=== PATIENT | male | born 1955 | race African-American/Black ===

== ENCOUNTER → 2017-07-12 | Outpatient (CLI) | payer OTHER | END | disposition home or self-care (01) | LOC: KCIC 10:28 | DX: R05 Cough (principal); M41.84 Other forms of scoliosis, thoracic region; Z87.891 Personal history of nicotine dependence | CPT/HCPCS: 71046 ==

== ENCOUNTER → 2017-07-30 | Outpatient (CLI) | payer OTHER | END | disposition home or self-care (01) | LOC: KCIC CT 09:34 | DX: J43.9 Emphysema, unspecified (principal); I25.10 Atherosclerotic heart disease of native coronary artery without angina pectoris; E04.1 Nontoxic single thyroid nodule; Z87.891 Personal history of nicotine dependence | CPT/HCPCS: 71250 ==

== ENCOUNTER → 2017-12-13 | Outpatient (CLI) | payer BC, OTHER, MEDICARE | END | disposition home or self-care (01) | LOC: KCIC US 09:04 | DX: E04.2 Nontoxic multinodular goiter (principal); J43.9 Emphysema, unspecified; Z87.891 Personal history of nicotine dependence | CPT/HCPCS: 76536 ==

== ENCOUNTER → 2018-11-08 | Outpatient (CLI) | payer BC ==
--- NOTE | 2018-11-08 14:29 | KCIC ---
Thyroid ultrasound HISTORY: Bilateral thyroid nodules, follow-up. COMPARISON: December 13, 2017 FINDINGS: Right thyroid measures 5.0 x 1.7 x 1.6 cm. Left lobe measures 5.5 x 1.8 x 1.9 cm. Thyroid isthmus measures 3.8 mm. Solid appearing right thyroid nodule measures 7 x 5 x 4 mm with mixed nature. Appears similar as prior study. This demonstrates internal vascularity. A couple of tiny nodules are again seen inferiorly on the right. Left superior pole thyroid nodule measures 9 x 6 x 7 mm with mixed nature and internal vascularity. Appearance and size are similar to the prior study. Additional tiny scattered nodules are also seen in the left thyroid. IMPRESSION: Bilateral dominant thyroid nodules with internal vascularity, no significant change in size or appearance since prior exam. Electronically signed by: Domenico Stevens MD (11/08/2018 2:26 PM) [facility]
== END | disposition home or self-care (01) ==
LOC: KCIC US 10:40
PROVIDERS: ATTEND Family Medicine
DX: E04.2 Nontoxic multinodular goiter (principal)
CPT/HCPCS: 76536

== ENCOUNTER 2019-06-08 12:55 | Emergency (ER) | payer BC, OTHER ==
[2019-06-08 13:04] VITALS: BP 123/78
[2019-06-08] MEDS ORDERED: IV NORMAL SALINE 1000ML BAG 1,000 ML IV ONE (13:15)
--- NOTE | 2019-06-08 13:25 | PHYS DOC ---
Past Medical History Past Surgical History: No Surgical History Smoking: Less than 1pk/day Adult General Chief Complaint Chief Complaint: DIZZY/LIGHT HEADED HPI HPI A 63-year-old male presents via EMS after a syncopal episode while at restoration. He reports feeling dizzy beforehand and needing to lay his head down.. He denies losing consciousness. He reports having episodes similar to this for the past month about once every 2 weeks. When he feels dizzy he will leg or sit down for 10-15 minutes and it goes away. He denies associated shortness of breath, chest pain, fever. In the emergency department he denies dizziness or any other symptoms. EMS gave him a 325 mg aspirin Review of Systems Review of Systems Constitutional: Denies fever or chills Eyes: Denies redness or eye pain HENT: Denies nasal congestion or sore throat Respiratory: Denies cough or shortness of breath Cardiovascular: Denies chest pain or palpitations GI: Denies abdominal pain, nausea, or vomiting : Denies dysuria or hematuria Musculoskeletal: Denies back pain or joint pain Integument: Denies rash or skin lesions Neurologic: Denies headache, focal weakness or sensory changes Complete systems were reviewed and found to be within normal limits, except as documented in this note. Current Medications Current Medications Current Medications Medications (Trade) Dose Ordered Sig/Darline Start Time Stop Time Status Last Admin Dose Admin Sodium Chloride 1,000 ml @ 1,000 mls/hr 1X ONCE 06/08/19 13:15 06/08/19 14:14 UNV Physical Exam Physical Exam Constitutional: Well developed, well nourished, no acute distress, non-toxic appearance HENT: Normocephalic, atraumatic, oropharynx moist Eyes: PERRL, EOMI, conjunctiva normal, no discharge Neck: Normal range of motion, no tenderness, supple Cardiovascular: Heart rate normal, regular rhythm Lungs & Thorax: Bilateral breath sounds clear to auscultation, no wheezing Abdomen: Soft, no tenderness Skin: Warm, dry, no erythema, no rash Back: No tenderness, no CVA tenderness Extremities: No tenderness, ROM intact, no edema Neurologic: Alert and oriented X 3, normal motor function, normal sensory function, no focal deficits noted Psychologic: Affect normal, judgement normal, mood normal Current Patient Data Vital Signs Vital Signs Date Time Temp Pulse Resp B/P (MAP) Pulse Ox O2 Delivery O2 Flow Rate FiO2 06/08/19 13:04 98.1 64 16 123/78 (93) 96 Room Air 98.1 EKG EKG EKG per EMS at 12:30 shows a normal sinus rhythm and a heart rate of [address] segment elevation in the and wide downward QRS complexes in the precordial leads. Per sgarbossa criteria STEMI is unlikely. EKG in the emergency department at 1308 shows sinus rhythm with a heart rate of 67 bpm. Similar findings of wide QRS complex and ST segment elevation in the precordial leads are shown. Per sgarbossa criteria STEMI is unlikely. Radiology/Procedures Radiology/Procedures [] Course & Med Decision Making Course & Med Decision Making Patient presents after a near syncopal episode at restoration. He reports 3 episodes in the last month of dizziness followed by laying or sitting down and feeling better in 10-15 minutes. Patient denies losing consciousness and says he is aware of everything that is happening is but didn't select responding. Dragon Disclaimer Dragon Disclaimer This electronic medical record was generated, in whole or in part, using a voice recognition dictation system. Departure Departure Impression: Primary Impression: Near syncope Additional Impressions: Left against medical advice Left bundle branch block Disposition: 07 AGAINST MEDICAL ADVICE Condition: GUARDED Referrals: FERMIN MIRANDA MD (PCP) LEANDRA CANTU MD Patient Instructions: Discharge Against Medical Advice, Syncope, [id number] Additional Instructions: You were noted to have an arrhythmia on EKG. It is unclear if this is new or old. Please follow closely with your doctor for re-evaluation. Problem Qualifiers LILLIE BURRELL DO Jun 08, 2019 13:25
[2019-06-08 13:35] LABS: BASO % 1 % (0-3); EOS # 0.1 x10^3/uL (0.0-0.7); EOS % 2 % (0-3); HEMATOCRIT 27.5 % (39.0-53.0); LYMPH # 1.5 x10^3/uL (1.0-4.8); LYMPH % 28 % (24-48); MEAN CORPUSCULAR HEMOGLOBIN 27 pg (25-35); MEAN CORPUSCULAR HGB CONC 33 g/dL (31-37); MEAN CORPUSCULAR VOLUME 84 fL (79-100); MONO # 0.3 x10^3/uL (0.0-1.1); MONO % 6 % (0-9); NEUT # 3.3 x10^3/uL (1.8-7.7); NEUT % 63 % (31-73); PLATELET COUNT 434 x10^3/uL (140-400); RED BLOOD COUNT 3.28 x10^6/uL (4.30-5.70); RED CELL DISTRIBUTION WIDTH 16.7 % (11.5-14.5); WHITE BLOOD COUNT 5.3 x10^3/uL (4.0-11.0)
[2019-06-08 13:44] LABS: CALCIUM 8.5 mg/dL (8.5-10.1); CREATININE 1.2 mg/dL (0.7-1.3); GFR 73.5; POTASSIUM 3.4 mmol/L (3.5-5.1); PROTHROMBIN TIME PATIENT 14.3 SEC (11.7-14.0)
[2019-06-08 13:50] LABS: ALBUMIN 3.3 g/dL (3.4-5.0); TOTAL BILIRUBIN 0.2 mg/dL (0.2-1.0); TOTAL PROTEIN 6.7 g/dL (6.4-8.2)
--- NOTE | 2019-06-09 08:20 | EKG ---
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
== END 2019-06-08 13:55 | disposition left against medical advice (07) ==
LOC: ER 12:55
DX: R55 Syncope and collapse (principal); I44.7 Left bundle-branch block, unspecified; F17.200 Nicotine dependence, unspecified, uncomplicated
CPT/HCPCS: 36415; 80053; 82553; 83735; 84484; 85025; 85610; 85730; 93005; 99285-25

== ENCOUNTER 2019-06-28 20:09 | Inpatient (IN) | payer OTHER ==
[~2019-06-28] VITALS: Ht 175.3 cm; Wt 65.7 kg
[2019-06-28 20:45] LABS: BASE EXCESS ABG -12 mmol/L (-3-3); FIO2 ABG 100; HCO3 ABG 17 mmol/L (21-28); PCO2 ABG 57 mmHg (35-46); PO2 ABG 54 mmHg (65-108); SAT O2 ABG 73 % (92-99)
[2019-06-28 20:52] LABS: BASO # 0.1 x10^3/uL (0.0-0.2); BASO % 1 % (0-3); EOS # 0.2 x10^3/uL (0.0-0.7); EOS % 2 % (0-3); HEMATOCRIT 27.3 % (39.0-53.0); HEMOGLOBIN 8.3 g/dL (13.0-17.5); LYMPH % 36 % (24-48); MEAN CORPUSCULAR HEMOGLOBIN 26 pg (25-35); MEAN CORPUSCULAR HGB CONC 30 g/dL (31-37); MEAN CORPUSCULAR VOLUME 85 fL (79-100); MONO # 0.6 x10^3/uL (0.0-1.1); MONO % 7 % (0-9); NEUT # 4.7 x10^3/uL (1.8-7.7); NEUT % 55 % (31-73); PLATELET COUNT 392 x10^3/uL (140-400); RED BLOOD COUNT 3.21 x10^6/uL (4.30-5.70); RED CELL DISTRIBUTION WIDTH 18.2 % (11.5-14.5); WHITE BLOOD COUNT 8.5 x10^3/uL (4.0-11.0)
[2019-06-28 20:57] LABS: PROTHROMBIN TIME PATIENT 14.7 SEC (11.7-14.0)
[2019-06-28 20:59] LABS: CALCIUM 8.3 mg/dL (8.5-10.1); CREATININE 1.2 mg/dL (0.7-1.3); GFR 73.5; POTASSIUM 3.4 mmol/L (3.5-5.1)
[2019-06-28] MEDS ORDERED: VANCOMYCIN 1GM IVPB FOR OMNI 250 ML IV ONE (21:00)
[2019-06-28] MEDS ORDERED: PIPERACILLIN/TAZOBACTAM 3.375 GM in IV NORMAL SALINE 50ML 50 ML IV ONE (21:00)
[2019-06-28] MEDS ORDERED: IV NORMAL SALINE 1000ML BAG 1,000 ML IV ONE (21:00)
[2019-06-28] MEDS ORDERED: IPRATRPIUM/ALBUTEROL 0.5/2.5MG 3 ML NEBU. NEB ONE (21:00)
[2019-06-28] MEDS ORDERED: MIDAZOLAM HCL 50 MG in IV NORMAL SALINE 50ML 50 ML IV PRN (21:00)
[2019-06-28] MEDS ORDERED: methylPREDNISolone SOD SUCC PF 125 MG/2 ML VIAL. IV ONE (21:00)
[2019-06-28 21:05] LABS: ALBUMIN 3.2 g/dL (3.4-5.0); ALBUMIN/GLOBULIN RATIO 1.1 (1.0-1.7); D-DIMER 1.05 ug/mlFEU (0.00-0.50); MAGNESIUM 2.2 mg/dL (1.8-2.4); TOTAL BILIRUBIN 0.3 mg/dL (0.2-1.0); TOTAL PROTEIN 6.2 g/dL (6.4-8.2)
[2019-06-28] MEDS ORDERED: VANCOMYCIN 2 GM in IV NORMAL SALINE 500ML BAG 500 ML IV ONE (21:15)
--- NOTE | 2019-06-28 21:15 | RAD ---
EXAM: CHEST ONE VIEW. HISTORY: Shortness of breath. COMPARISON: 07/30/2017. FINDINGS: A frontal view of the chest is obtained. Bilateral perihilar and basilar predominant interstitial opacities are consistent with vdiy-km-bjinoerh pulmonary edema. Hyperinflation is consistent with chronic obstructive pulmonary disease. There is no pneumothorax or clear pleural effusion. The heart is mildly enlarged. IMPRESSION: 1. Wivn-jl-iulxftwp pulmonary edema. Mild cardiomegaly. 2. Correlate for chronic obstructive pulmonary disease. Electronically signed by: Diann Hua MD (06/28/2019 9:12 PM) [id number]
--- NOTE | 2019-06-28 21:22 | PHYS DOC ---
Past Medical History Past Medical History: Unknown Additional Past Medical Histor: PER MEDICS DENIES ALL PMH Past Surgical History: No Surgical History Alcohol Use: None Social History Narrative: UNKNOWN Adult General Chief Complaint Chief Complaint: SHORTNESS OF BREATH HPI HPI Patient is a 63 year old smoker male with history of heart problems who presents EMS with complaint of shortness of breath. Patient complaining of sudden onset of shortness of breath that started couple of hours prior to arrival to ER without chest pain, fever and chills, new change of chronic cough who has had for several months, nausea and vomiting. Patient is reported that patient had O2 sats of 96% room air and brought without any oxygen to emergency room. Patient trying to lay on the ground and states he feels better like that. Patient had O2 sats of 84% at room air at arrival to ER. Review of Systems Review of Systems Constitutional: Denies fever or chills [] Eyes: Denies change in visual acuity, redness, or eye pain [] HENT: Denies nasal congestion or sore throat [] Respiratory: Reports cough and shortness of breath Cardiovascular: No additional information not addressed in HPI [] GI: Denies abdominal pain, nausea, vomiting, bloody stools or diarrhea [] : Denies dysuria or hematuria [] Musculoskeletal: Denies back pain or joint pain [] Integument: Denies rash or skin lesions [] Neurologic: Denies headache, focal weakness or sensory changes [] Endocrine: Denies polyuria or polydipsia [] All other systems were reviewed and found to be within normal limits, except as documented in this note. Allergies Allergies Allergies Coded Allergies Type Severity Reaction Last Updated Verified No Known Drug Allergies 06/28/19 No Physical Exam Physical Exam Constitutional: Moderate distress, non-toxic appearance, diaphoretic. [] HENT: Normocephalic, atraumatic, bilateral external ears normal, oropharynx moist, no oral exudates, nose normal. [] Eyes: PERRLA, EOMI, conjunctiva normal, no discharge. [] Neck: Normal range of motion, no tenderness, supple, no stridor, JVD. [] Cardiovascular: Tachycardia Lungs & Thorax: Moderate respiratory distress with tachypnea and intercostal retraction and rhonchi and rales Abdomen: Bowel sounds normal, soft, no tenderness, no masses, no pulsatile masses. [] Skin: Warm, dry, no erythema, no rash. [] Back: No tenderness, no CVA tenderness. [] Extremities: No tenderness, no cyanosis, no clubbing, ROM intact, no edema. [] Neurologic: Alert and oriented X 3, normal motor function, normal sensory function, no focal deficits noted. [] Psychologic: Affect anxious. Current Patient Data Vital Signs Vital Signs Date Time Temp Pulse Resp B/P (MAP) Pulse Ox O2 Delivery O2 Flow Rate FiO2 06/28/19 20:34 129 178/114 (135) 100 06/28/19 20:09 98.5 36 Room Air 98.5 Lab Values Laboratory Tests Test 06/28/19 20:20 06/28/19 20:36 06/28/19 20:40 White Blood Count 8.5 x10^3/uL (4.0-11.0) Red Blood Count 3.21 x10^6/uL (4.30-5.70) L Hemoglobin 8.3 g/dL (13.0-17.5) L Hematocrit 27.3 % (39.0-53.0) L Mean Corpuscular Volume 85 fL (79-100) Mean Corpuscular Hemoglobin 26 pg (25-35) Mean Corpuscular Hemoglobin Concent 30 g/dL (31-37) L Red Cell Distribution Width 18.2 % (11.5-14.5) H Platelet Count 392 x10^3/uL (140-400) Neutrophils (%) (Auto) 55 % (31-73) Lymphocytes (%) (Auto) 36 % (24-48) Monocytes (%) (Auto) 7 % (0-9) Eosinophils (%) (Auto) 2 % (0-3) Basophils (%) (Auto) 1 % (0-3) Neutrophils # (Auto) 4.7 x10^3/uL (1.8-7.7) Lymphocytes # (Auto) 3.0 x10^3/uL (1.0-4.8) Monocytes # (Auto) 0.6 x10^3/uL (0.0-1.1) Eosinophils # (Auto) 0.2 x10^3/uL (0.0-0.7) Basophils # (Auto) 0.1 x10^3/uL (0.0-0.2) Prothrombin Time 14.7 SEC (11.7-14.0) H Prothrombin Time INR 1.2 (0.8-1.1) H Activated Partial Thromboplast Time 26 SEC (24-38) D-Dimer (Ingrid) 1.05 ug/mlFEU (0.00-0.50) H Sodium Level 143 mmol/L (136-145) Potassium Level 3.4 mmol/L (3.5-5.1) L Chloride Level 104 mmol/L (98-107) Carbon Dioxide Level 19 mmol/L (21-32) L Anion Gap 20 (6-14) H Blood Urea Nitrogen 11 mg/dL (8-26) Creatinine 1.2 mg/dL (0.7-1.3) Estimated GFR (Cockcroft-Gault) 73.5 BUN/Creatinine Ratio 9 (6-20) Glucose Level 276 mg/dL (70-99) H Lactic Acid Level 8.1 mmol/L (0.4-2.0) *H Calcium Level 8.3 mg/dL (8.5-10.1) L Magnesium Level 2.2 mg/dL (1.8-2.4) Total Bilirubin 0.3 mg/dL (0.2-1.0) Aspartate Amino Transferase (AST) 36 U/L (15-37) Alanine Aminotransferase (ALT) 30 U/L (16-63) Alkaline Phosphatase 136 U/L (46-116) H Creatine Kinase 232 U/L (39-308) Troponin I Quantitative 0.051 ng/mL (0.000-0.055) WV-Xee-K-Type Natriuretic Peptide 2585 pg/mL (0-124) H Total Protein 6.2 g/dL (6.4-8.2) L Albumin 3.2 g/dL (3.4-5.0) L Albumin/Globulin Ratio 1.1 (1.0-1.7) Lipase 105 U/L (73-393) Thyroid Stimulating Hormone (TSH) 1.343 uIU/mL (0.358-3.74) POC Troponin I 0.03 ng/ml (<0.08) O2 Saturation 73 % (92-99) L Arterial Blood pH 7.10 (7.35-7.45) *L Arterial Blood pCO2 at Patient Temp 57 mmHg (35-46) H Arterial Blood pO2 at Patient Temp 54 mmHg (65-108) L Arterial Blood HCO3 17 mmol/L (21-28) L Arterial Blood Base Excess -12 mmol/L (-3-3) L FiO2 100 Laboratory Tests 06/28/19 20:20 Laboratory Tests 06/28/19 20:20 EKG EKG EKG interpreted by me. EKG at 2026 showed sinus tachycardia at rate of 136, left atrial abnormality, left bundle branch block (old), no acute ST and T-wave elevation. Radiology/Procedures Radiology/Procedures [facility] [address] [place] [address] IMAGING REPORT Signed PATIENT: LAYO BUTLER BACCOUNT: [id number] : 1955 LOCATION: [address] [place] [address] AGE: 63 SEX: M EXAM STATUS: ADM IN ORD. PHYSICIAN: EVELYN FLEMING MD REASON: shortness of breath er#1 PROCEDURE: PORTABLE CHEST 1V EXAM: CHEST ONE VIEW. HISTORY: Shortness of breath. COMPARISON: 07/30/2017. FINDINGS: A frontal view of the chest is obtained. Bilateral perihilar and basilar predominant interstitial opacities are consistent with sqrz-tb-nxydbqha pulmonary edema. Hyperinflation is consistent with chronic obstructive pulmonary disease. There is no pneumothorax or clear pleural effusion. The heart is mildly enlarged. IMPRESSION: 1. Zgnr-of-geivhopa pulmonary edema. Mild cardiomegaly. 2. Correlate for chronic obstructive pulmonary disease. Electronically signed by: Diann Hua MD (06/28/2019 9:12 PM) [id number] DICTATED and SIGNED BY: BRITTNEE HUA MD DATE: 06/28/192111 Course & Med Decision Making Course & Med Decision Making Pertinent Labs and Imaging studies reviewed. (See chart for details) Evaluation of patient in ER showed 64-year-old male patient brought in by EMS because of sudden in onset of shortness of breath. Patient had O2 sats of 84 percent while brought by EMS with diaphoresis and moderate respiratory distress and tachypnea and tachycardia. Patient was started on nonrebreather. An ABG was obtained with pH of 7.1 decided to intubate the patient but patient condition improved significantly with decrease of heart rate and respiratory rate. Therefore patient was started on BiPAP and tolerated BiPAP well. Treatment for sepsis was a started with IV fluid and antibiotic but chest x-ray showed pulmonary edema and IV fluid. Mouth and Lasix was ordered because patient did not have hypotension. Lactic acid reported more than 8 that was most likely related to hypoxia and respiratory distress and patient was not treated with bolus of IV fluids because of lack of hypotension and source of infection and leukocytosis and fever. Patient was admitted to ICU with significant improvement of his condition. Patient requiring admission for further evaluation and treatment. Discussed with Dr. Bledsoe who is in agreement with admission. Discussed findings and plan with patient and family, who acknowledge understanding and agreement. Dragon Disclaimer Dragon Disclaimer This electronic medical record was generated, in whole or in part, using a voice recognition dictation system. Departure Departure Impression: Primary Impression: Acute respiratory distress Additional Impressions: Pulmonary edema Anemia Acute respiratory acidosis Tobacco abuse Disposition: ADMITTED INPATIENT (at 2120) Admitting Physician: URIEL (Dr. Bledsoe accepted admission at 2119) Condition: GUARDED Referrals: FERMIN MIRANDA MD (PCP) Critical Care Time Critical care time was 80 minutes exclusive of procedures. Date and Time of Reassessment Date: Jun 28, 2019 Time: 21:30 Fluid Challenge Is the fluid challenge complet: No (no hypotension or leukocytosis or fever, pulmonary edema) IBW Target Volume Used: No BMI > 30: No Vital Signs Vital Signs: Vital Signs Date Time Temp Pulse Resp B/P (MAP) Pulse Ox O2 Delivery O2 Flow Rate FiO2 06/28/19 20:34 129 178/114 (135) 100 06/28/19 20:09 98.5 36 Room Air 98.5 Temperature Source: Oral Respirations Respiratory Pattern: Tachypnea Cardiovascular Pulse Rhythm: Regular Heart: Nml S1, S2, no murmurs Capillary Refil Capillary Refill: Rt Hand < 3 seconds Peripheral Pulse Pulse Location: Radial Pulse Strength: Normal (2+) Pulse Assessment Method: NIBP Problem Qualifiers Additional Impressions: Pulmonary edema Chronicity: acute Qualified Codes: J81.0 - Acute pulmonary edema Anemia Anemia type: unspecified type Qualified Codes: D64.9 - Anemia, unspecified EVELYN FLEMING MD Jun 28, 2019 21:22
[2019-06-28 21:33] LABS: INFLUENZA A PATIENT NEGATIVE (NEGATIVE); INFLUENZA B PATIENT NEGATIVE (NEGATIVE)
[2019-06-28] MEDS ORDERED: FUROSEMIDE 40 MG/4 ML VIAL. IVP ONE (22:00)
[2019-06-28 22:30] VITALS: BP 148/108
--- NOTE | 2019-06-28 22:30 | NUR ---
pt admitted to room 105 from ED at this time, able to move over to ICU bed without difficulty. pt placed back on bipap at 50%, expresses desire to leave it off but educated on need to keep in on for the foreseeable future; pt voices understanding. VSS on bipap, pt alert and oriented x4 and able to answer admission questions without difficulty. will pass on in report, will continue to closely monitor.
[2019-06-28 22:46] LABS: BARBITURATES NEG (NEG); BENZODIAZEPINES NEG (NEG); CANNABINOIDS NEG (NEG); COCAINE NEG (NEG); METHADONE NEG (NEG); OPIATES NEG (NEG); PHENCYCLIDINE NEG (NEG)
[2019-06-28 22:47] LABS: AMPHETAMINE/METHAMPHETAMINE NEG (NEG)
[2019-06-28 22:52] LABS: BILIRUBIN,URINE NEGATIVE (NEG); CLARITY,URINE CLEAR; COLOR,URINE YELLOW; NITRITE,URINE NEGATIVE (NEG); PH,URINE 5.5; PROTEIN,URINE NEGATIVE (NEG-TRACE); UROBILINOGEN,URINE 0.2 mg/dL (0.2 mg/dL)
[2019-06-28 22:53] LABS: BACTERIA,URINE 0 /HPF (0-FEW); RBC,URINE 0 /HPF (0-2); WBC,URINE OCC /HPF (0-4)
--- NOTE | 2019-06-28 23:45 | NUR ---
pt requesting this nurse contact his earl Almazan via phone and update her on his current condition. attempted to reach her but no answer; will attempt to contact her again in the morning. pt updated and voices understanding. will continue to closely monitor.
[2019-06-29] VITALS (16 sets, daily range): BP systolic 102–154; BP diastolic 62–106
[2019-06-29] MEDS ORDERED: ETOMIDATE 20 MG/10 ML VIAL. IV ONE (00:26)
[2019-06-29] MEDS ORDERED: SUCCINYLCHOLINE 200 MG/10 ML VIAL. ONE (00:27)
[2019-06-29] MEDS ORDERED: FLUT16SP AC (07:51)
[2019-06-29] MEDS ORDERED: CITA40TA5 PO (07:51)
[2019-06-29 08:29] LABS: CALCIUM 8.2 mg/dL (8.5-10.1); GFR 90.5; POTASSIUM 3.7 mmol/L (3.5-5.1)
[2019-06-29 08:50] LABS: BASO % 0 % (0-3); EOS % 0 % (0-3); HEMATOCRIT 25.6 % (39.0-53.0); LYMPH # 0.3 x10^3/uL (1.0-4.8); LYMPH % 4 % (24-48); MEAN CORPUSCULAR HEMOGLOBIN 26 pg (25-35); MEAN CORPUSCULAR HGB CONC 31 g/dL (31-37); MEAN CORPUSCULAR VOLUME 84 fL (79-100); MONO # 0.1 x10^3/uL (0.0-1.1); MONO % 2 % (0-9); NEUT % 93 % (31-73); PLATELET COUNT 330 x10^3/uL (140-400); RED BLOOD COUNT 3.06 x10^6/uL (4.30-5.70); RED CELL DISTRIBUTION WIDTH 17.5 % (11.5-14.5); WHITE BLOOD COUNT 6.4 x10^3/uL (4.0-11.0)
[2019-06-29] MEDS ORDERED: FUROSEMIDE 20 MG/2 ML VIAL. IVP ONE (09:15)
[2019-06-29] MEDS ORDERED: LISINOPRIL 5 MG TABLET. PO ONE (09:15)
--- NOTE | 2019-06-29 09:23 | PDOC ---
PULMONARY PROGRESS NOTES Vitals Vital Signs Date Time Temp Pulse Resp B/P (MAP) Pulse Ox O2 Delivery O2 Flow Rate FiO2 06/29/19 08:47 98.0 105 18 134/86 (102) 100 BiPAP/CPAP 4.0 98.0 Labs Laboratory Tests Test 06/28/19 20:20 06/28/19 20:36 06/28/19 20:40 06/28/19 21:00 White Blood Count 8.5 x10^3/uL (4.0-11.0) Red Blood Count 3.21 x10^6/uL (4.30-5.70) Hemoglobin 8.3 g/dL (13.0-17.5) Hematocrit 27.3 % (39.0-53.0) Mean Corpuscular Volume 85 fL (79-100) Mean Corpuscular Hemoglobin 26 pg (25-35) Mean Corpuscular Hemoglobin Concent 30 g/dL (31-37) Red Cell Distribution Width 18.2 % (11.5-14.5) Platelet Count 392 x10^3/uL (140-400) Neutrophils (%) (Auto) 55 % (31-73) Lymphocytes (%) (Auto) 36 % (24-48) Monocytes (%) (Auto) 7 % (0-9) Eosinophils (%) (Auto) 2 % (0-3) Basophils (%) (Auto) 1 % (0-3) Neutrophils # (Auto) 4.7 x10^3/uL (1.8-7.7) Lymphocytes # (Auto) 3.0 x10^3/uL (1.0-4.8) Monocytes # (Auto) 0.6 x10^3/uL (0.0-1.1) Eosinophils # (Auto) 0.2 x10^3/uL (0.0-0.7) Basophils # (Auto) 0.1 x10^3/uL (0.0-0.2) Prothrombin Time 14.7 SEC (11.7-14.0) Prothromb Time International Ratio 1.2 (0.8-1.1) Activated Partial Thromboplast Time 26 SEC (24-38) D-Dimer (Ingrid) 1.05 ug/mlFEU (0.00-0.50) Sodium Level 143 mmol/L (136-145) Potassium Level 3.4 mmol/L (3.5-5.1) Chloride Level 104 mmol/L (98-107) Carbon Dioxide Level 19 mmol/L (21-32) Anion Gap 20 (6-14) Blood Urea Nitrogen 11 mg/dL (8-26) Creatinine 1.2 mg/dL (0.7-1.3) Estimated GFR (Cockcroft-Gault) 73.5 BUN/Creatinine Ratio 9 (6-20) Glucose Level 276 mg/dL (70-99) Lactic Acid Level 8.1 mmol/L (0.4-2.0) Calcium Level 8.3 mg/dL (8.5-10.1) Magnesium Level 2.2 mg/dL (1.8-2.4) Total Bilirubin 0.3 mg/dL (0.2-1.0) Aspartate Amino Transf (AST/SGOT) 36 U/L (15-37) Alanine Aminotransferase (ALT/SGPT) 30 U/L (16-63) Alkaline Phosphatase 136 U/L (46-116) Creatine Kinase 232 U/L (39-308) Troponin I Quantitative 0.051 ng/mL (0.000-0.055) DF-Oql-U-Type Natriuretic Peptide 2585 pg/mL (0-124) Total Protein 6.2 g/dL (6.4-8.2) Albumin 3.2 g/dL (3.4-5.0) Albumin/Globulin Ratio 1.1 (1.0-1.7) Lipase 105 U/L (73-393) Thyroid Stimulating Hormone (TSH) 1.343 uIU/mL (0.358-3.74) Bedside Troponin I 0.03 ng/ml (<0.08) O2 Saturation 73 % (92-99) Arterial Blood pH 7.10 (7.35-7.45) Arterial Blood pCO2 at Patient Temp 57 mmHg (35-46) Arterial Blood pO2 at Patient Temp 54 mmHg (65-108) Arterial Blood HCO3 17 mmol/L (21-28) Arterial Blood Base Excess -12 mmol/L (-3-3) FiO2 100 Influenza Type A Antigen Negative (NEGATIVE) Influenza Type B Antigen Negative (NEGATIVE) Test 06/28/19 22:30 06/29/19 00:15 06/29/19 02:00 Urine Collection Type Unknown Urine Color Yellow Urine Clarity Clear Urine pH 5.5 Urine Specific [place] 1.020 Urine Protein Negative mg/dL (NEG-TRACE) Urine Glucose (UA) >=1000 mg/dL (NEG) Urine Ketones (Stick) Negative mg/dL (NEG) Urine Blood Negative (NEG) Urine Nitrite Negative (NEG) Urine Bilirubin Negative (NEG) Urine Urobilinogen Dipstick 0.2 mg/dL (0.2 mg/dL) Urine Leukocyte Esterase Negative (NEG) Urine RBC 0 /HPF (0-2) Urine WBC Occ /HPF (0-4) Urine Bacteria 0 /HPF (0-FEW) Urine Opiates Screen Neg (NEG) Urine Methadone Screen Neg (NEG) Urine Barbiturates Neg (NEG) Urine Phencyclidine Screen Neg (NEG) Urine Amphetamine/Methamphetamine Neg (NEG) Urine Benzodiazepines Screen Neg (NEG) Urine Cocaine Screen Neg (NEG) Urine Cannabinoids Screen Neg (NEG) Urine Ethyl Alcohol Neg (NEG) Lactic Acid Level 1.1 mmol/L (0.4-2.0) White Blood Count 6.4 x10^3/uL (4.0-11.0) Red Blood Count 3.06 x10^6/uL (4.30-5.70) Hemoglobin 8.0 g/dL (13.0-17.5) Hematocrit 25.6 % (39.0-53.0) Mean Corpuscular Volume 84 fL (79-100) Mean Corpuscular Hemoglobin 26 pg (25-35) Mean Corpuscular Hemoglobin Concent 31 g/dL (31-37) Red Cell Distribution Width 17.5 % (11.5-14.5) Platelet Count 330 x10^3/uL (140-400) Neutrophils (%) (Auto) 93 % (31-73) Lymphocytes (%) (Auto) 4 % (24-48) Monocytes (%) (Auto) 2 % (0-9) Eosinophils (%) (Auto) 0 % (0-3) Basophils (%) (Auto) 0 % (0-3) Neutrophils # (Auto) 6.0 x10^3/uL (1.8-7.7) Lymphocytes # (Auto) 0.3 x10^3/uL (1.0-4.8) Monocytes # (Auto) 0.1 x10^3/uL (0.0-1.1) Eosinophils # (Auto) 0.0 x10^3/uL (0.0-0.7) Basophils # (Auto) 0.0 x10^3/uL (0.0-0.2) Sodium Level 141 mmol/L (136-145) Potassium Level 3.7 mmol/L (3.5-5.1) Chloride Level 106 mmol/L (98-107) Carbon Dioxide Level 25 mmol/L (21-32) Anion Gap 10 (6-14) Blood Urea Nitrogen 12 mg/dL (8-26) Creatinine 1.0 mg/dL (0.7-1.3) Estimated GFR (Cockcroft-Gault) 90.5 Glucose Level 109 mg/dL (70-99) Calcium Level 8.2 mg/dL (8.5-10.1) Laboratory Tests Test 06/28/19 20:20 06/28/19 20:36 06/28/19 20:40 06/28/19 21:00 White Blood Count 8.5 x10^3/uL (4.0-11.0) Red Blood Count 3.21 x10^6/uL (4.30-5.70) Hemoglobin 8.3 g/dL (13.0-17.5) Hematocrit 27.3 % (39.0-53.0) Mean Corpuscular Volume 85 fL (79-100) Mean Corpuscular Hemoglobin 26 pg (25-35) Mean Corpuscular Hemoglobin Concent 30 g/dL (31-37) Red Cell Distribution Width 18.2 % (11.5-14.5) Platelet Count 392 x10^3/uL (140-400) Neutrophils (%) (Auto) 55 % (31-73) Lymphocytes (%) (Auto) 36 % (24-48) Monocytes (%) (Auto) 7 % (0-9) Eosinophils (%) (Auto) 2 % (0-3) Basophils (%) (Auto) 1 % (0-3) Neutrophils # (Auto) 4.7 x10^3/uL (1.8-7.7) Lymphocytes # (Auto) 3.0 x10^3/uL (1.0-4.8) Monocytes # (Auto) 0.6 x10^3/uL (0.0-1.1) Eosinophils # (Auto) 0.2 x10^3/uL (0.0-0.7) Basophils # (Auto) 0.1 x10^3/uL (0.0-0.2) Prothrombin Time 14.7 SEC (11.7-14.0) Prothromb Time International Ratio 1.2 (0.8-1.1) Activated Partial Thromboplast Time 26 SEC (24-38) D-Dimer (Ingrid) 1.05 ug/mlFEU (0.00-0.50) Sodium Level 143 mmol/L (136-145) Potassium Level 3.4 mmol/L (3.5-5.1) Chloride Level 104 mmol/L (98-107) Carbon Dioxide Level 19 mmol/L (21-32) Anion Gap 20 (6-14) Blood Urea Nitrogen 11 mg/dL (8-26) Creatinine 1.2 mg/dL (0.7-1.3) Estimated GFR (Cockcroft-Gault) 73.5 BUN/Creatinine Ratio 9 (6-20) Glucose Level 276 mg/dL (70-99) Lactic Acid Level 8.1 mmol/L (0.4-2.0) Calcium Level 8.3 mg/dL (8.5-10.1) Magnesium Level 2.2 mg/dL (1.8-2.4) Total Bilirubin 0.3 mg/dL (0.2-1.0) Aspartate Amino Transf (AST/SGOT) 36 U/L (15-37) Alanine Aminotransferase (ALT/SGPT) 30 U/L (16-63) Alkaline Phosphatase 136 U/L (46-116) Creatine Kinase 232 U/L (39-308) Troponin I Quantitative 0.051 ng/mL (0.000-0.055) ZS-Liu-E-Type Natriuretic Peptide 2585 pg/mL (0-124) Total Protein 6.2 g/dL (6.4-8.2) Albumin 3.2 g/dL (3.4-5.0) Albumin/Globulin Ratio 1.1 (1.0-1.7) Lipase 105 U/L (73-393) Thyroid Stimulating Hormone (TSH) 1.343 uIU/mL (0.358-3.74) Bedside Troponin I 0.03 ng/ml (<0.08) O2 Saturation 73 % (92-99) Arterial Blood pH 7.10 (7.35-7.45) Arterial Blood pCO2 at Patient Temp 57 mmHg (35-46) Arterial Blood pO2 at Patient Temp 54 mmHg (65-108) Arterial Blood HCO3 17 mmol/L (21-28) Arterial Blood Base Excess -12 mmol/L (-3-3) FiO2 100 Influenza Type A Antigen Negative (NEGATIVE) Influenza Type B Antigen Negative (NEGATIVE) Test 06/28/19 22:30 06/29/19 00:15 06/29/19 02:00 Urine Collection Type Unknown Urine Color Yellow Urine Clarity Clear Urine pH 5.5 Urine Specific [place] 1.020 Urine Protein Negative mg/dL (NEG-TRACE) Urine Glucose (UA) >=1000 mg/dL (NEG) Urine Ketones (Stick) Negative mg/dL (NEG) Urine Blood Negative (NEG) Urine Nitrite Negative (NEG) Urine Bilirubin Negative (NEG) Urine Urobilinogen Dipstick 0.2 mg/dL (0.2 mg/dL) Urine Leukocyte Esterase Negative (NEG) Urine RBC 0 /HPF (0-2) Urine WBC Occ /HPF (0-4) Urine Bacteria 0 /HPF (0-FEW) Urine Opiates Screen Neg (NEG) Urine Methadone Screen Neg (NEG) Urine Barbiturates Neg (NEG) Urine Phencyclidine Screen Neg (NEG) Urine Amphetamine/Methamphetamine Neg (NEG) Urine Benzodiazepines Screen Neg (NEG) Urine Cocaine Screen Neg (NEG) Urine Cannabinoids Screen Neg (NEG) Urine Ethyl Alcohol Neg (NEG) Lactic Acid Level 1.1 mmol/L (0.4-2.0) White Blood Count 6.4 x10^3/uL (4.0-11.0) Red Blood Count 3.06 x10^6/uL (4.30-5.70) Hemoglobin 8.0 g/dL (13.0-17.5) Hematocrit 25.6 % (39.0-53.0) Mean Corpuscular Volume 84 fL (79-100) Mean Corpuscular Hemoglobin 26 pg (25-35) Mean Corpuscular Hemoglobin Concent 31 g/dL (31-37) Red Cell Distribution Width 17.5 % (11.5-14.5) Platelet Count 330 x10^3/uL (140-400) Neutrophils (%) (Auto) 93 % (31-73) Lymphocytes (%) (Auto) 4 % (24-48) Monocytes (%) (Auto) 2 % (0-9) Eosinophils (%) (Auto) 0 % (0-3) Basophils (%) (Auto) 0 % (0-3) Neutrophils # (Auto) 6.0 x10^3/uL (1.8-7.7) Lymphocytes # (Auto) 0.3 x10^3/uL (1.0-4.8) Monocytes # (Auto) 0.1 x10^3/uL (0.0-1.1) Eosinophils # (Auto) 0.0 x10^3/uL (0.0-0.7) Basophils # (Auto) 0.0 x10^3/uL (0.0-0.2) Sodium Level 141 mmol/L (136-145) Potassium Level 3.7 mmol/L (3.5-5.1) Chloride Level 106 mmol/L (98-107) Carbon Dioxide Level 25 mmol/L (21-32) Anion Gap 10 (6-14) Blood Urea Nitrogen 12 mg/dL (8-26) Creatinine 1.0 mg/dL (0.7-1.3) Estimated GFR (Cockcroft-Gault) 90.5 Glucose Level 109 mg/dL (70-99) Calcium Level 8.2 mg/dL (8.5-10.1) Medications Active Scripts Medications Dose Route/Sig Max Daily Dose Days Date Category Citalopram Hbr (Citalopram Hydrobromide) 40 Mg Tablet 40 Mg PO DAILY 06/29/19 Reported Fluticasone Propionate Nasal [place] (Fluticasone Propionate) 16 Gm [place].susp 16 Gm AC DAILY 06/29/19 Reported Impression . FULL NOTE DICTATED WILL CONTINUE TREATMENT FOR ACUTE CHF D/W DR Mikaela BERG ORDERS THANKS YUDI CARBALLO MD Jun 29, 2019 09:23
--- NOTE | 2019-06-29 09:24 | CONS ---
DATE OF CONSULTATION: 06/29/2019 REASON FOR CONSULTATION: Heart failure. HISTORY OF PRESENT ILLNESS: The patient is a 64-year-old man who presented to the hospital in the setting of excessive dyspnea. He apparently was in his usual state of health, watching the TV and came out of the bathroom when he noted significant dyspnea. His heart rate was noted to be 148 upon arrival to the ER with a blood pressure of 207/88. This slowly improved after diuresis and initiation of BiPAP therapy. He was essentially admitted for treatment of flash pulmonary edema. In speaking to the patient, at baseline he denies any exertional dyspnea, angina, orthopnea, or PND. He apparently saw his PCP a few days ago and was given some medications. He is unclear whether these were pulmonary related or cardiac related. He was due to see Cardiology in the near future. He denies any prior cardiac interventions or any prior lung disease issues. He was seen in the Emergency Department approximately 2 weeks ago and he was there for some dizziness and lightheadedness. This appeared to have occurred after standing in [place] and ultimately he was discharged with followup with Cardiology. PAST MEDICAL HISTORY: Essentially unknown, but the patient denies any significant hypertension, diabetes, or dyslipidemia. SOCIAL HISTORY: The patient smokes cigarettes. Denies any illicit drug use or other excessive alcohol use. ALLERGIES: No known drug allergies. CURRENT CARDIOVASCULAR MEDICATIONS: Lasix 40 mg IV push x 1. He has also been given antibiotics, which will likely be discontinued in the near future. REVIEW OF SYSTEMS: Negative unless otherwise mentioned above in HPI. PHYSICAL EXAMINATION: VITAL SIGNS: Afebrile; heart rate 148 initially, down to 74 currently. Blood pressure was initially 207 systolic, now down to 134. He is on 4 liters nasal cannula, saturating approximately 98%. GENERAL: He is a thin, elderly man, in no acute distress. HEAD AND NECK: Unremarkable. CARDIAC: Regular rate and rhythm without any obvious murmurs. LUNGS: Notable for bilateral rhonchi. ABDOMEN: Soft, nontender, nondistended. EXTREMITIES: No obvious clubbing or cyanosis. There are 2+ radial and 1+ dorsalis pedis pulses. No lower extremity edema. DIAGNOSTIC STUDIES: Hemoglobin is 8.0. Initial blood gas revealed a pH of 7.1. Creatinine is 1.0 with negative cardiac enzymes initially. EKG demonstrates sinus tachycardia with left bundle branch block. Chest x-ray suggestive of diffuse pulmonary edema. IMPRESSION: 1. Acute respiratory failure, likely secondary to flash pulmonary edema. 2. Probable cardiomyopathy given left bundle branch block and cardiomegaly on chest x-ray. 3. Probable uncontrolled hypertension. RECOMMENDATIONS: 1. We will plan for initiation of a low-dose heart failure regimen including carvedilol, lisinopril, and Lasix for now. 2. Obtain echocardiogram and make further determinations regarding plans of care over the next 24 hours. Thank you for this consultation. LEANDRA CANTU MD DR: SABINE/ildefonso JOB#: [id number] / [id number]
[2019-06-29] MEDS ORDERED: ALBUTEROL SULFATE 2.5 MG/3 ML NEBU. NEB PRN (09:30)
--- NOTE | 2019-06-29 09:35 | CONS ---
DATE OF CONSULTATION: 06/29/2019 ATTENDING PHYSICIAN: Remi Bledsoe MD CONSULTING PHYSICIAN: Yudi Mojica MD REASON FOR CONSULTATION: The patient seen in pulmonary consultation at the request of Dr. Bledsoe for acute respiratory failure requiring noninvasive ventilation. Initial arterial blood gas revealed a pH of 7.10, PaCO2 of 57, pO2 of 54, bicarb of 17. HISTORY OF PRESENT ILLNESS: The patient is currently off of BiPAP. He states that he saw Dr. Isaac during the week. She had prescribed some medications. He is not quite sure what he was supposed to take. He denies any prior history of hypertension. He has been told he has had COPD, wears no oxygen at home. No previous coronary artery disease. The patient presented with the above complaints. He was severely short of breath, initially on BiPAP. He is now off of BiPAP. His chest x-ray revealed acute infiltrates compatible with pulmonary edema. The patient states that this week he has not smoked, he is not feeling well. Denies fever, chills, nausea, vomiting, diarrhea. PAST MEDICAL HISTORY: Unclear, but I believe he has hypertension. When he came in, initial blood pressure was markedly elevated. He also smokes and has underlying COPD with an unknown FEV1. REVIEW OF SYSTEMS: CONSTITUTIONAL: No fever or chills. EYES: No change in visual acuity. HENT: No nasal congestion or sore throat. PULMONARY: As indicated above. CARDIOVASCULAR: No chest pain. No pressure. GASTROINTESTINAL: No nausea, vomiting, diarrhea. GENITOURINARY: No dysuria or frequency. MUSCULOSKELETAL: No localized muscle aches or joint pains. SKIN: No new skin rashes. NEUROLOGIC: No headaches, diplopia, or blurred vision. ALLERGIES: No known drug allergies. SOCIAL HISTORY: He is currently not working. Denies any illicit drugs. Does smoke cigarettes. No history of alcoholism. FAMILY HISTORY: Noncontributory in this case. CURRENT MEDICATION: List was reviewed. PHYSICAL EXAMINATION: VITAL SIGNS: Stable. Initial blood pressure was 207/88, his room air saturation in the Emergency Room was 84. HEENT: Eyes, the sclerae were nonicteric. NECK: Jugular venous distention was not elevated. No lymphadenopathy. CHEST: Full expansion. LUNGS: Adequate flow with expiratory wheeze. CARDIOVASCULAR: Regular rate and rhythm with S1, S2. No S3. ABDOMEN: Soft, nontender, nondistended. EXTREMITIES: No clubbing, cyanosis, or edema. LABORATORY DATA: BNP was elevated. White count was normal. Hemoglobin and hematocrit were low, chronically low. Arterial blood gas as indicated above. Toxicology screen was negative. Serology for influenza was negative. IMPRESSION: 1. Acute hypercapnic hypoxemic respiratory failure. 2. Severe metabolic acidosis secondary to increased work of breathing. 3. Acute pulmonary edema. 4. Uncontrolled hypertension/hypertensive crisis. 5. Chronic anemia. 6. Tobacco dependent. 7. Chronic obstructive pulmonary disease, unknown FEV1. PLAN: 1. Recommend continue oxygen supplementation. 2. IV Lasix. 3. No clinical signs of pneumonia, no need for antibiotics. 4. No significant evidence of wheezing. Recommend no steroids at this time. 5. Case was discussed with Dr. Lopez, the patient may require ischemic workup. We will continue adequate blood pressure control. Follow clinical course. The patient was instructed on the importance of discontinuing tobacco use, he will undergo pulmonary function testing as an outpatient, will recommend continue Spiriva as an outpatient, along with p.r.n. albuterol. YUDI MOJICA MD DR: EBENEZER/ildefonso JOB#: [id number] / [id number]
[2019-06-29] MEDS: CARVEDILOL 3.125 MG TABLET. PO SCH ×2 (09:44→17:30)
[2019-06-29] MEDS: ENOXAPARIN 40 MG/0.4 ML SYRINGE. SQ SCH (09:47)
[2019-06-29 10:02] LABS: BASE EXCESS ABG -2 mmol/L (-3-3); HCO3 ABG 21 mmol/L (21-28); PCO2 ABG 27 mmHg (35-46); PO2 ABG 68 mmHg (65-108); SAT O2 ABG 94 % (92-99)
[2019-06-29 10:13] LABS: FIO2 ABG 21
[2019-06-29 11:08] LABS: % BANDS 3 % (0-9); % EOS 1 % (0-5); % LYMPHS 7 % (24-48); % MONOS 2 % (0-10); % SEGS 87 % (35-66); PLT ESTIMATE ADEQUATE (ADEQUATE)
[2019-06-29] MEDS: IPRATRPIUM/ALBUTEROL 0.5/2.5MG 3 ML NEBU. NEB SCH ×3 (11:51→20:18)
--- NOTE | 2019-06-29 15:01 | EKG ---
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
--- NOTE | 2019-06-29 15:14 | PDOC1 ---
History and Physical Date of Admission: Date of Admission DATE: 06/29/19 TIME: 15:09 Chief Complaint: Problems: (1) Respiratory distress (2) Tobacco abuse (3) Anemia (4) Pulmonary edema (5) Acute respiratory acidosis (6) Acute respiratory distress Chief Complain: Shortness of breath History of Present Illness: HPI: This is a pleasant 63-year-old male who presented to the ER with shortness of breath This is been occurring for several days but got really bad last night He tried increasing his home meds but that didn't help Rates his symptoms at 9 out of 10 He has no associated cough for several months and some nausea vomiting He laid on the ground and that seemed to help a little bit Describes as symptoms as very irritating When the EMS arrived he was 84% saturation on room air Evaluation in the ER confirmed acute on chronic systolic and diastolic heart failure with respiratory failure Patient is now in the ICU room 105 where he is being examined Pulmonary and cardiology have been consulted Past Medical/Surgical History: PMH/PSH: Past Medical History: Unknown Additional Past Medical Histor: PER MEDICS DENIES ALL PMH Past Surgical History: No Surgical History Alcohol Use: None Social History Narrative: UNKNOWN Allergies: Allergies: Coded Allergies: No Known Drug Allergies (Unverified , 06/28/19) Family History: Family History: Coronary disease Social History: Social Hisoty: He does not drink smoke or take drugs he is retired Current Medications: Current Medications Current Medications Albuterol/ Ipratropium (Duoneb) 3 ml 1X ONCE NEB Last administered on 06/28/19at 21:00; Start 06/28/19 at 21:00; Stop 06/28/19 at 21:01; Status DC Methylprednisolone Sodium Succinate (SOLU-Medrol 125MG VIAL) 125 mg 1X ONCE IV Last administered on 06/28/19at 20:41; Start 06/28/19 at 21:00; Stop 06/28/19 at 21:01; Status DC Sodium Chloride 1,000 ml @ 1,000 mls/hr 1X ONCE IV ; Start 06/28/19 at 21:00; Stop 06/28/19 at 21:22; Status DC Midazolam HCl 50 mg/Sodium Chloride 50 ml @ 1 mls/hr CONT PRN IV SEE I/O RECORD; Start 06/28/19 at 21:00 Piperacillin Sod/ Tazobactam Sod 3.375 gm/Sodium Chloride 50 ml @ 100 mls/hr 1X ONCE IV Last administered on 06/28/19at 21:48; Start 06/28/19 at 21:00; Stop 06/28/19 at 21:29; Status DC Vancomycin HCl 250 ml @ 250 mls/hr 1X ONCE IV ; Start 06/28/19 at 21:00; Stop 06/28/19 at 21:59; Status UNV Lorazepam (Ativan Inj) 1 mg 1X ONCE IVP ; Start 06/28/19 at 21:00; Stop 06/28/19 at 21:02; Status DC Vancomycin HCl 2 gm/Sodium Chloride 500 ml @ 250 mls/hr 1X ONCE IV Last administered on 06/28/19at 21:47; Start 06/28/19 at 21:15; Stop 06/28/19 at 23:14; Status DC Furosemide (Lasix) 40 mg 1X ONCE IVP Last administered on 06/28/19at 21:46; Start 06/28/19 at 22:00; Stop 06/28/19 at 22:01; Status DC Etomidate (Amidate) 20 mg STK-MED ONCE IV ; Start 06/29/19 at 00:26; Stop 06/29/19 at 00:27; Status DC Succinylcholine Chloride (Anectine) 200 mg STK-MED ONCE .ROUTE ; Start 06/29/19 at 00:27; Stop 06/29/19 at 00:27; Status DC Carvedilol (Coreg) 3.125 mg BIDWMEALS PO Last administered on 06/29/19at 09:44; Start 06/29/19 at 09:30 Lisinopril (Prinivil) 5 mg DAILY PO ; Start 06/30/19 at 09:00 Lisinopril (Prinivil) 5 mg 1X ONCE PO Last administered on 06/29/19at 09:44; Start 06/29/19 at 09:15; Stop 06/29/19 at 09:26; Status DC Furosemide (Lasix) 20 mg 1X ONCE IVP Last administered on 06/29/19at 09:43; Start 06/29/19 at 09:15; Stop 06/29/19 at 09:26; Status DC Albuterol Sulfate (Ventolin Neb Soln) 2.5 mg PRN Q2HR PRN NEB DYSPNEA; Start 06/29/19 at 09:30 Albuterol/ Ipratropium (Duoneb) 3 ml RTQID NEB Last administered on 06/29/19at 11:51; Start 06/29/19 at 12:00 Enoxaparin Sodium (Lovenox 40mg Syringe) 40 mg DAILY SQ Last administered on 06/29/19at 09:47; Start 06/29/19 at 10:00 Active Scripts Active Reported Citalopram Hbr (Citalopram Hydrobromide) 40 Mg Tablet 40 Mg PO DAILY Fluticasone Propionate Nasal Vail (Fluticasone Propionate) 16 Gm Vail.susp 16 Gm AC DAILY ROS: Review of Systems Review of System REVIEW OF SYSTEMS: GENERAL: Complains of weakness SKIN: No bruising, hair changes or rashes. EYES: No blurred, double or loss of vision. NOSE AND THROAT: No history of nosebleeds, hoarseness or sore throat. HEART: Complains of intermittent chest discomfort and palpitations LUNGS: Complains of shortness breath and cough GASTROINTESTINAL: Complains of intermittent nausea vomiting GENITOURINARY: No history of frequency, urgency, hesitancy or nocturia. NEUROLOGIC: Complains of weakness PSYCHIATRIC: Complains of depression ENDOCRINE: No history of heat or cold intolerance, polyuria or polydipsia. EXTREMITIES: Denies joint pain, pain on walking or stiffness. Physical Exam: Vital Signs: Vital Signs Date Time Temp Pulse Resp B/P (MAP) Pulse Ox O2 Delivery O2 Flow Rate FiO2 06/29/19 15:01 98.0 77 16 128/79 (95) 100 Nasal Cannula 1.0 98.0 Physcial Exam: GEN: Awake and alert but very weak HEENT: Normal cephalic, atraumatic, external auditory canals are patent EYES: Extraocular muscles are intact, pupil are equally round and reactive to light and accommodation MUSCULOSKELETAL: Well developed , well nourished, good range of motion ENDOCRINE: No thyromegaly was palpated LYMPHATICS: No cervical chain or axillary nodes were noted HEMATOPOIETIC: No bruising NECK: Supple, no JVD, no thyromegaly was noted LUNGS: Bibasilar crackles HEART: S1 and S2 and a soft S3 ABDOMEN: Soft, nontender. Positive bowel sounds, no organomegaly, normal bowel sounds EXTREMITIES: Without clubbing, cyanosis, or edema. Pedal pulses intact. Negative Homans sign NEUROLOGIC: . Weak PSYCHIATRIC: Depressed SKIN: No ulcerations or rashes, good skin turgor, no jaundice VASCULAR: Good capillary refill, neurovascular bundle appears to be intact Labs: Labs: Laboratory Tests Test 06/28/19 20:20 06/28/19 20:36 06/28/19 20:40 06/28/19 21:00 White Blood Count 8.5 x10^3/uL (4.0-11.0) Red Blood Count 3.21 x10^6/uL (4.30-5.70) Hemoglobin 8.3 g/dL (13.0-17.5) Hematocrit 27.3 % (39.0-53.0) Mean Corpuscular Volume 85 fL (79-100) Mean Corpuscular Hemoglobin 26 pg (25-35) Mean Corpuscular Hemoglobin Concent 30 g/dL (31-37) Red Cell Distribution Width 18.2 % (11.5-14.5) Platelet Count 392 x10^3/uL (140-400) Neutrophils (%) (Auto) 55 % (31-73) Lymphocytes (%) (Auto) 36 % (24-48) Monocytes (%) (Auto) 7 % (0-9) Eosinophils (%) (Auto) 2 % (0-3) Basophils (%) (Auto) 1 % (0-3) Neutrophils # (Auto) 4.7 x10^3/uL (1.8-7.7) Lymphocytes # (Auto) 3.0 x10^3/uL (1.0-4.8) Monocytes # (Auto) 0.6 x10^3/uL (0.0-1.1) Eosinophils # (Auto) 0.2 x10^3/uL (0.0-0.7) Basophils # (Auto) 0.1 x10^3/uL (0.0-0.2) Prothrombin Time 14.7 SEC (11.7-14.0) Prothromb Time International Ratio 1.2 (0.8-1.1) Activated Partial Thromboplast Time 26 SEC (24-38) D-Dimer (Ingrid) 1.05 ug/mlFEU (0.00-0.50) Sodium Level 143 mmol/L (136-145) Potassium Level 3.4 mmol/L (3.5-5.1) Chloride Level 104 mmol/L (98-107) Carbon Dioxide Level 19 mmol/L (21-32) Anion Gap 20 (6-14) Blood Urea Nitrogen 11 mg/dL (8-26) Creatinine 1.2 mg/dL (0.7-1.3) Estimated GFR (Cockcroft-Gault) 73.5 BUN/Creatinine Ratio 9 (6-20) Glucose Level 276 mg/dL (70-99) Lactic Acid Level 8.1 mmol/L (0.4-2.0) Calcium Level 8.3 mg/dL (8.5-10.1) Magnesium Level 2.2 mg/dL (1.8-2.4) Total Bilirubin 0.3 mg/dL (0.2-1.0) Aspartate Amino Transf (AST/SGOT) 36 U/L (15-37) Alanine Aminotransferase (ALT/SGPT) 30 U/L (16-63) Alkaline Phosphatase 136 U/L (46-116) Creatine Kinase 232 U/L (39-308) Troponin I Quantitative 0.051 ng/mL (0.000-0.055) TE-Vxo-Q-Type Natriuretic Peptide 2585 pg/mL (0-124) Total Protein 6.2 g/dL (6.4-8.2) Albumin 3.2 g/dL (3.4-5.0) Albumin/Globulin Ratio 1.1 (1.0-1.7) Lipase 105 U/L (73-393) Thyroid Stimulating Hormone (TSH) 1.343 uIU/mL (0.358-3.74) Bedside Troponin I 0.03 ng/ml (<0.08) O2 Saturation 73 % (92-99) Arterial Blood pH 7.10 (7.35-7.45) Arterial Blood pCO2 at Patient Temp 57 mmHg (35-46) Arterial Blood pO2 at Patient Temp 54 mmHg (65-108) Arterial Blood HCO3 17 mmol/L (21-28) Arterial Blood Base Excess -12 mmol/L (-3-3) FiO2 100 Influenza Type A Antigen Negative (NEGATIVE) Influenza Type B Antigen Negative (NEGATIVE) Test 06/28/19 22:30 06/29/19 00:15 06/29/19 02:00 06/29/19 09:55 Urine Collection Type Unknown Urine Color Yellow Urine Clarity Clear Urine pH 5.5 Urine Specific [place] 1.020 Urine Protein Negative mg/dL (NEG-TRACE) Urine Glucose (UA) >=1000 mg/dL (NEG) Urine Ketones (Stick) Negative mg/dL (NEG) Urine Blood Negative (NEG) Urine Nitrite Negative (NEG) Urine Bilirubin Negative (NEG) Urine Urobilinogen Dipstick 0.2 mg/dL (0.2 mg/dL) Urine Leukocyte Esterase Negative (NEG) Urine RBC 0 /HPF (0-2) Urine WBC Occ /HPF (0-4) Urine Bacteria 0 /HPF (0-FEW) Urine Opiates Screen Neg (NEG) Urine Methadone Screen Neg (NEG) Urine Barbiturates Neg (NEG) Urine Phencyclidine Screen Neg (NEG) Urine Amphetamine/Methamphetamine Neg (NEG) Urine Benzodiazepines Screen Neg (NEG) Urine Cocaine Screen Neg (NEG) Urine Cannabinoids Screen Neg (NEG) Urine Ethyl Alcohol Neg (NEG) Lactic Acid Level 1.1 mmol/L (0.4-2.0) White Blood Count 6.4 x10^3/uL (4.0-11.0) Red Blood Count 3.06 x10^6/uL (4.30-5.70) Hemoglobin 8.0 g/dL (13.0-17.5) Hematocrit 25.6 % (39.0-53.0) Mean Corpuscular Volume 84 fL (79-100) Mean Corpuscular Hemoglobin 26 pg (25-35) Mean Corpuscular Hemoglobin Concent 31 g/dL (31-37) Red Cell Distribution Width 17.5 % (11.5-14.5) Platelet Count 330 x10^3/uL (140-400) Neutrophils (%) (Auto) 93 % (31-73) Lymphocytes (%) (Auto) 4 % (24-48) Monocytes (%) (Auto) 2 % (0-9) Eosinophils (%) (Auto) 0 % (0-3) Basophils (%) (Auto) 0 % (0-3) Neutrophils # (Auto) 6.0 x10^3/uL (1.8-7.7) Lymphocytes # (Auto) 0.3 x10^3/uL (1.0-4.8) Monocytes # (Auto) 0.1 x10^3/uL (0.0-1.1) Eosinophils # (Auto) 0.0 x10^3/uL (0.0-0.7) Basophils # (Auto) 0.0 x10^3/uL (0.0-0.2) Segmented Neutrophils % 87 % (35-66) Band Neutrophils % 3 % (0-9) Lymphocytes % 7 % (24-48) Monocytes % 2 % (0-10) Eosinophils % 1 % (0-5) Platelet Estimate Adequate (ADEQUATE) Sodium Level 141 mmol/L (136-145) Potassium Level 3.7 mmol/L (3.5-5.1) Chloride Level 106 mmol/L (98-107) Carbon Dioxide Level 25 mmol/L (21-32) Anion Gap 10 (6-14) Blood Urea Nitrogen 12 mg/dL (8-26) Creatinine 1.0 mg/dL (0.7-1.3) Estimated GFR (Cockcroft-Gault) 90.5 Glucose Level 109 mg/dL (70-99) Calcium Level 8.2 mg/dL (8.5-10.1) O2 Saturation 94 % (92-99) Arterial Blood pH 7.50 (7.35-7.45) Arterial Blood pCO2 at Patient Temp 27 mmHg (35-46) Arterial Blood pO2 at Patient Temp 68 mmHg (65-108) Arterial Blood HCO3 21 mmol/L (21-28) Arterial Blood Base Excess -2 mmol/L (-3-3) FiO2 21 Laboratory Tests Test 06/28/19 20:20 06/28/19 20:36 06/28/19 20:40 06/28/19 21:00 White Blood Count 8.5 x10^3/uL (4.0-11.0) Red Blood Count 3.21 x10^6/uL (4.30-5.70) Hemoglobin 8.3 g/dL (13.0-17.5) Hematocrit 27.3 % (39.0-53.0) Mean Corpuscular Volume 85 fL (79-100) Mean Corpuscular Hemoglobin 26 pg (25-35) Mean Corpuscular Hemoglobin Concent 30 g/dL (31-37) Red Cell Distribution Width 18.2 % (11.5-14.5) Platelet Count 392 x10^3/uL (140-400) Neutrophils (%) (Auto) 55 % (31-73) Lymphocytes (%) (Auto) 36 % (24-48) Monocytes (%) (Auto) 7 % (0-9) Eosinophils (%) (Auto) 2 % (0-3) Basophils (%) (Auto) 1 % (0-3) Neutrophils # (Auto) 4.7 x10^3/uL (1.8-7.7) Lymphocytes # (Auto) 3.0 x10^3/uL (1.0-4.8) Monocytes # (Auto) 0.6 x10^3/uL (0.0-1.1) Eosinophils # (Auto) 0.2 x10^3/uL (0.0-0.7) Basophils # (Auto) 0.1 x10^3/uL (0.0-0.2) Prothrombin Time 14.7 SEC (11.7-14.0) Prothromb Time International Ratio 1.2 (0.8-1.1) Activated Partial Thromboplast Time 26 SEC (24-38) D-Dimer (Ingrid) 1.05 ug/mlFEU (0.00-0.50) Sodium Level 143 mmol/L (136-145) Potassium Level 3.4 mmol/L (3.5-5.1) Chloride Level 104 mmol/L (98-107) Carbon Dioxide Level 19 mmol/L (21-32) Anion Gap 20 (6-14) Blood Urea Nitrogen 11 mg/dL (8-26) Creatinine 1.2 mg/dL (0.7-1.3) Estimated GFR (Cockcroft-Gault) 73.5 BUN/Creatinine Ratio 9 (6-20) Glucose Level 276 mg/dL (70-99) Lactic Acid Level 8.1 mmol/L (0.4-2.0) Calcium Level 8.3 mg/dL (8.5-10.1) Magnesium Level 2.2 mg/dL (1.8-2.4) Total Bilirubin 0.3 mg/dL (0.2-1.0) Aspartate Amino Transf (AST/SGOT) 36 U/L (15-37) Alanine Aminotransferase (ALT/SGPT) 30 U/L (16-63) Alkaline Phosphatase 136 U/L (46-116) Creatine Kinase 232 U/L (39-308) Troponin I Quantitative 0.051 ng/mL (0.000-0.055) KC-Upe-Y-Type Natriuretic Peptide 2585 pg/mL (0-124) Total Protein 6.2 g/dL (6.4-8.2) Albumin 3.2 g/dL (3.4-5.0) Albumin/Globulin Ratio 1.1 (1.0-1.7) Lipase 105 U/L (73-393) Thyroid Stimulating Hormone (TSH) 1.343 uIU/mL (0.358-3.74) Bedside Troponin I 0.03 ng/ml (<0.08) O2 Saturation 73 % (92-99) Arterial Blood pH 7.10 (7.35-7.45) Arterial Blood pCO2 at Patient Temp 57 mmHg (35-46) Arterial Blood pO2 at Patient Temp 54 mmHg (65-108) Arterial Blood HCO3 17 mmol/L (21-28) Arterial Blood Base Excess -12 mmol/L (-3-3) FiO2 100 Influenza Type A Antigen Negative (NEGATIVE) Influenza Type B Antigen Negative (NEGATIVE) Test 06/28/19 22:30 06/29/19 00:15 06/29/19 02:00 06/29/19 09:55 Urine Collection Type Unknown Urine Color Yellow Urine Clarity Clear Urine pH 5.5 Urine Specific [place] 1.020 Urine Protein Negative mg/dL (NEG-TRACE) Urine Glucose (UA) >=1000 mg/dL (NEG) Urine Ketones (Stick) Negative mg/dL (NEG) Urine Blood Negative (NEG) Urine Nitrite Negative (NEG) Urine Bilirubin Negative (NEG) Urine Urobilinogen Dipstick 0.2 mg/dL (0.2 mg/dL) Urine Leukocyte Esterase Negative (NEG) Urine RBC 0 /HPF (0-2) Urine WBC Occ /HPF (0-4) Urine Bacteria 0 /HPF (0-FEW) Urine Opiates Screen Neg (NEG) Urine Methadone Screen Neg (NEG) Urine Barbiturates Neg (NEG) Urine Phencyclidine Screen Neg (NEG) Urine Amphetamine/Methamphetamine Neg (NEG) Urine Benzodiazepines Screen Neg (NEG) Urine Cocaine Screen Neg (NEG) Urine Cannabinoids Screen Neg (NEG) Urine Ethyl Alcohol Neg (NEG) Lactic Acid Level 1.1 mmol/L (0.4-2.0) White Blood Count 6.4 x10^3/uL (4.0-11.0) Red Blood Count 3.06 x10^6/uL (4.30-5.70) Hemoglobin 8.0 g/dL (13.0-17.5) Hematocrit 25.6 % (39.0-53.0) Mean Corpuscular Volume 84 fL (79-100) Mean Corpuscular Hemoglobin 26 pg (25-35) Mean Corpuscular Hemoglobin Concent 31 g/dL (31-37) Red Cell Distribution Width 17.5 % (11.5-14.5) Platelet Count 330 x10^3/uL (140-400) Neutrophils (%) (Auto) 93 % (31-73) Lymphocytes (%) (Auto) 4 % (24-48) Monocytes (%) (Auto) 2 % (0-9) Eosinophils (%) (Auto) 0 % (0-3) Basophils (%) (Auto) 0 % (0-3) Neutrophils # (Auto) 6.0 x10^3/uL (1.8-7.7) Lymphocytes # (Auto) 0.3 x10^3/uL (1.0-4.8) Monocytes # (Auto) 0.1 x10^3/uL (0.0-1.1) Eosinophils # (Auto) 0.0 x10^3/uL (0.0-0.7) Basophils # (Auto) 0.0 x10^3/uL (0.0-0.2) Segmented Neutrophils % 87 % (35-66) Band Neutrophils % 3 % (0-9) Lymphocytes % 7 % (24-48) Monocytes % 2 % (0-10) Eosinophils % 1 % (0-5) Platelet Estimate Adequate (ADEQUATE) Sodium Level 141 mmol/L (136-145) Potassium Level 3.7 mmol/L (3.5-5.1) Chloride Level 106 mmol/L (98-107) Carbon Dioxide Level 25 mmol/L (21-32) Anion Gap 10 (6-14) Blood Urea Nitrogen 12 mg/dL (8-26) Creatinine 1.0 mg/dL (0.7-1.3) Estimated GFR (Cockcroft-Gault) 90.5 Glucose Level 109 mg/dL (70-99) Calcium Level 8.2 mg/dL (8.5-10.1) O2 Saturation 94 % (92-99) Arterial Blood pH 7.50 (7.35-7.45) Arterial Blood pCO2 at Patient Temp 27 mmHg (35-46) Arterial Blood pO2 at Patient Temp 68 mmHg (65-108) Arterial Blood HCO3 21 mmol/L (21-28) Arterial Blood Base Excess -2 mmol/L (-3-3) FiO2 21 Images: Images PATIENT: LAYO BUTLER BACCOUNT: [id number] : 1955 LOCATION: [facility] ICU AGE: 63 SEX: M EXAM STATUS: ADM IN ORD. PHYSICIAN: EVELYN FLEMING MD REASON: shortness of breath er#1 PROCEDURE: PORTABLE CHEST 1V EXAM: CHEST ONE VIEW. HISTORY: Shortness of breath. COMPARISON: 07/30/2017. FINDINGS: A frontal view of the chest is obtained. Bilateral perihilar and basilar predominant interstitial opacities are consistent with [id number] pulmonary edema. Hyperinflation is consistent with chronic obstructive pulmonary disease. There is no pneumothorax or clear pleural effusion. The heart is mildly enlarged. IMPRESSION: 1. [id number] pulmonary edema. Mild cardiomegaly. 2. Correlate for chronic obstructive pulmonary disease. Assessment/Plan Assessment/Plan Multifactorial respiratory failure Acute on chronic systolic and diastolic heart failure COPD Plan ICU monitoring We have consulted pulmonary and cardiology O2 per nasal cannula Duo nebs Serial enzymes Serial EKGs IV Lasix Trend labs Home meds DVT prophylaxis Full code Prognosis very guarded GRANT SALEEM III DO Jun 29, 2019 15:13
[2019-06-30] VITALS (13 sets, daily range): BP systolic 89–120; BP diastolic 50–84
[2019-06-30] MEDS: IPRATRPIUM/ALBUTEROL 0.5/2.5MG 3 ML NEBU. NEB SCH ×3 (08:13→15:48)
[2019-06-30] MEDS ORDERED: LISINOPRIL 5 MG TABLET. PO SCH (09:00)
[2019-06-30] MEDS: CARVEDILOL 3.125 MG TABLET. PO SCH ×2 (09:35→17:05)
[2019-06-30] MEDS ORDERED: LIDOCAINE 1% PF 2 ML VIAL. ONE (10:53)
[2019-06-30] MEDS ORDERED: IOHEXOL 300 MG/ML 100ML VIAL. ONE (11:41)
--- NOTE | 2019-06-30 11:58 | CARD ---
MR#: [id number] Date of Study: 06/29/2019 Ordering Physician: LEANDRA CANTU, Referring Physician: LEANDRA CANTU, Tech: Adina Alex [facility] APPROVED REPORT EXAM: Two-dimensional and M-mode echocardiogram with Doppler and color Doppler. Other Information Quality : GoodHR: 80bpm Rhythm : NSR INDICATION Congestive Heart Failure 2D DIMENSIONS RVDd3.0 (2.9-3.5cm)Left Atrium(2D)3.7 (1.6-4.0cm) IVSd1.1 (0.7-1.1cm)Aortic Root(2D)2.8 (2.0-3.7cm) LVDd5.5 (3.9-5.9cm)LVOT Diameter1.9 (1.8-2.4cm) PWd1.0 (0.7-1.1cm)LVDs4.7 (2.5-4.0cm) FS (%) 14.7 %SV45.0 ml LVEF(%)25.0 (>50%) M-Mode DIMENSIONS Left Atrium(MM)3.75 (2.5-4.0cm)Aortic Root3.21 (2.2-3.7cm) Aortic Valve AoV Peak Mendoza.167.3cm/sAoV VTI24.1cm AO Peak GR.11.2mmHgLVOT VTI 11.93cm AO Mean GR.6mmHgAVA (VTI)1.50cm2 Mitral Valve MV E Ajvfbdiw66.8cm/sMV E Peak Gr.97mmHg MV DECEL [id number] A Klndtmtl04.3cm/s E/A Ratio1.1MV A Ffxglvkb136xv Tricuspid Valve TR P. Xiggnihb509uk/sRAP [id number] TR Peak Gr.21daHhJWOG94wkMy Pulmonary Vein S1 Orjuqebj54.7cm/sS2 Bukmtdig88.92cm/s D2 Kgzxjaou41.9cm/s LEFT VENTRICLE The left ventricle is normal size. There is mild concentric left ventricular hypertrophy. The left ve ntricular systolic function is severely impaired. The Ejection Fraction is 20-25%. There is global hy pokinesis of the left ventricle. RIGHT VENTRICLE The right ventricle is normal size. There is normal right ventricular wall thickness. The right ventr icular systolic function is normal. ATRIA The left atrium size is normal. The right atrium size is normal. The interatrial septum is intact wit h no evidence for an atrial septal defect or patent foramen ovale as noted on 2-D or Doppler imaging. AORTIC VALVE The aortic valve is trileaflet. The aortic valve is mildly thickened. Doppler and Color Flow revealed no significant aortic regurgitation. There is no significant aortic valvular stenosis. MITRAL VALVE Mitral annular calcification is mild. There is no evidence of mitral valve prolapse. There is no mitr al valve stenosis. Doppler and Color-flow revealed mild to moderate mitral regurgitation. TRICUSPID VALVE The tricuspid valve is normal in structure and function. Doppler and Color Flow revealed mild tricusp id regurgitation. There is mild pulmonary hypertension. The PA pressure was estimated at 42 mmHg. The re is no tricuspid valve prolapse or vegetation. There is no tricuspid valve stenosis. PULMONIC VALVE The pulmonic valve is not well visualized. GREAT VESSELS The aortic root is normal in size. The ascending aorta is normal in size. The IVC is normal in size a nd collapses >50% with inspiration. PERICARDIAL EFFUSION There is no evidence of significant pericardial effusion. Critical Notification Critical Value: No <Conclusion> The left ventricular systolic function is severely impaired. The Ejection Fraction is 20-25%. Mild to moderate mitral regurgitation. Mild tricuspid regurgitation. The PA pressure was estimated at 42 mmHg. There is no evidence of significant pericardial effusion. Signed by : Star Villafana, Electronically Approved : 06/30/2019 08:43:04
[2019-06-30] MEDS ORDERED: VERAPAMIL 5 MG/2 ML VIAL. ONE (12:02)
[2019-06-30] MEDS ORDERED: HEPARIN for IV BOLUS 10,000 UNIT/10 ML VIAL. ONE (12:02)
[2019-06-30] MEDS ORDERED: NITROGLYCERIN 200 MCG/2 ML SYRINGE FOR CATH/VASC LAB. ONE (12:02)
[2019-06-30] MEDS ORDERED: MIDAZOLAM HCL/PF 2 MG/2 ML VIAL. ONE (12:02)
[2019-06-30] MEDS ORDERED: fentaNYL PF VIAL 100 MCG/2 ML VIAL ONE (12:02)
--- NOTE | 2019-06-30 12:04 | PDOC ---
MODERATE SEDATION ASSESSMENT RISKS/ALTERNATIVES Risks/Alternatives Risks and alternatives of this type of sedation and procedure discussed with: RISK/ALTERNATIVES: Patient H & P ON CHART H & P H & P on chart and reviewed for co-morbid conditions and appropriate labs. H&P ON CHART: Yes STATUS PREG STATUS ASSESSED: N/A MEDS/ALLERGIES REVIEWED Meds/Allergies Reviewed Medications and Allergies including time and route of recently administered narcotics and sedatives. MEDS/ALLERGIES REVIEWED: Yes ASA RATING ASA RATING: II AIRWAY ASSESSMENT Airway Assessment Airway patency, oral function limitations, presence of caps, crowns, dentures, partials, and ability to extend neck assessed. AIRWAY ASSESSMENT: Yes MALLAMPATI SCORE MALLAMPATI SCORE: II PRE-SEDATION ASSESSMENT PRE-SEDATION ASSESSMENT: Yes (I spoke with the patient and his nephew regarding r/b/a. Ok to proceed. ) LEANDRA CANTU MD Jun 30, 2019 12:04
[2019-06-30] MEDS ORDERED: VERAPAMIL 5 MG/2 ML VIAL. IART ONE (12:15)
[2019-06-30] MEDS ORDERED: HEPARIN for IV BOLUS 10,000 UNIT/10 ML VIAL. IART ONE (12:15)
[2019-06-30] MEDS ORDERED: fentaNYL PF VIAL 100 MCG/2 ML VIAL IV ONE (12:15)
[2019-06-30] MEDS ORDERED: NITROGLYCERIN 200 MCG/2 ML SYRINGE FOR CATH/VASC LAB. IART ONE (12:15)
[2019-06-30] MEDS ORDERED: MIDAZOLAM HCL/PF 2 MG/2 ML VIAL. IV ONE (12:15)
[2019-06-30] MEDS ORDERED: IODIXANOL 320 MG/ML 100 ML VIAL. IART ONE (12:15)
[2019-06-30] MEDS ORDERED: LIDOCAINE 1% PF 2 ML VIAL. INJ ONE (12:15)
--- NOTE | 2019-06-30 12:39 | PDOC ---
PULMONARY PROGRESS NOTES Vitals Vital Signs Date Time Temp Pulse Resp B/P (MAP) Pulse Ox O2 Delivery O2 Flow Rate FiO2 06/30/19 12:27 73 12 95 Nasal Cannula 6.0 06/30/19 10:11 97.6 104/61 (75) 97.6 Labs Laboratory Tests Test 06/28/19 20:20 06/28/19 20:36 06/28/19 20:40 06/28/19 21:00 White Blood Count 8.5 x10^3/uL (4.0-11.0) Red Blood Count 3.21 x10^6/uL (4.30-5.70) Hemoglobin 8.3 g/dL (13.0-17.5) Hematocrit 27.3 % (39.0-53.0) Mean Corpuscular Volume 85 fL (79-100) Mean Corpuscular Hemoglobin 26 pg (25-35) Mean Corpuscular Hemoglobin Concent 30 g/dL (31-37) Red Cell Distribution Width 18.2 % (11.5-14.5) Platelet Count 392 x10^3/uL (140-400) Neutrophils (%) (Auto) 55 % (31-73) Lymphocytes (%) (Auto) 36 % (24-48) Monocytes (%) (Auto) 7 % (0-9) Eosinophils (%) (Auto) 2 % (0-3) Basophils (%) (Auto) 1 % (0-3) Neutrophils # (Auto) 4.7 x10^3/uL (1.8-7.7) Lymphocytes # (Auto) 3.0 x10^3/uL (1.0-4.8) Monocytes # (Auto) 0.6 x10^3/uL (0.0-1.1) Eosinophils # (Auto) 0.2 x10^3/uL (0.0-0.7) Basophils # (Auto) 0.1 x10^3/uL (0.0-0.2) Prothrombin Time 14.7 SEC (11.7-14.0) Prothromb Time International Ratio 1.2 (0.8-1.1) Activated Partial Thromboplast Time 26 SEC (24-38) D-Dimer (Ingrid) 1.05 ug/mlFEU (0.00-0.50) Sodium Level 143 mmol/L (136-145) Potassium Level 3.4 mmol/L (3.5-5.1) Chloride Level 104 mmol/L (98-107) Carbon Dioxide Level 19 mmol/L (21-32) Anion Gap 20 (6-14) Blood Urea Nitrogen 11 mg/dL (8-26) Creatinine 1.2 mg/dL (0.7-1.3) Estimated GFR (Cockcroft-Gault) 73.5 BUN/Creatinine Ratio 9 (6-20) Glucose Level 276 mg/dL (70-99) Lactic Acid Level 8.1 mmol/L (0.4-2.0) Calcium Level 8.3 mg/dL (8.5-10.1) Magnesium Level 2.2 mg/dL (1.8-2.4) Total Bilirubin 0.3 mg/dL (0.2-1.0) Aspartate Amino Transf (AST/SGOT) 36 U/L (15-37) Alanine Aminotransferase (ALT/SGPT) 30 U/L (16-63) Alkaline Phosphatase 136 U/L (46-116) Creatine Kinase 232 U/L (39-308) Troponin I Quantitative 0.051 ng/mL (0.000-0.055) JP-Lyo-N-Type Natriuretic Peptide 2585 pg/mL (0-124) Total Protein 6.2 g/dL (6.4-8.2) Albumin 3.2 g/dL (3.4-5.0) Albumin/Globulin Ratio 1.1 (1.0-1.7) Lipase 105 U/L (73-393) Thyroid Stimulating Hormone (TSH) 1.343 uIU/mL (0.358-3.74) Bedside Troponin I 0.03 ng/ml (<0.08) O2 Saturation 73 % (92-99) Arterial Blood pH 7.10 (7.35-7.45) Arterial Blood pCO2 at Patient Temp 57 mmHg (35-46) Arterial Blood pO2 at Patient Temp 54 mmHg (65-108) Arterial Blood HCO3 17 mmol/L (21-28) Arterial Blood Base Excess -12 mmol/L (-3-3) FiO2 100 Influenza Type A Antigen Negative (NEGATIVE) Influenza Type B Antigen Negative (NEGATIVE) Test 06/28/19 22:30 06/29/19 00:15 06/29/19 02:00 06/29/19 09:55 Urine Collection Type Unknown Urine Color Yellow Urine Clarity Clear Urine pH 5.5 Urine Specific [place] 1.020 Urine Protein Negative mg/dL (NEG-TRACE) Urine Glucose (UA) >=1000 mg/dL (NEG) Urine Ketones (Stick) Negative mg/dL (NEG) Urine Blood Negative (NEG) Urine Nitrite Negative (NEG) Urine Bilirubin Negative (NEG) Urine Urobilinogen Dipstick 0.2 mg/dL (0.2 mg/dL) Urine Leukocyte Esterase Negative (NEG) Urine RBC 0 /HPF (0-2) Urine WBC Occ /HPF (0-4) Urine Bacteria 0 /HPF (0-FEW) Urine Opiates Screen Neg (NEG) Urine Methadone Screen Neg (NEG) Urine Barbiturates Neg (NEG) Urine Phencyclidine Screen Neg (NEG) Urine Amphetamine/Methamphetamine Neg (NEG) Urine Benzodiazepines Screen Neg (NEG) Urine Cocaine Screen Neg (NEG) Urine Cannabinoids Screen Neg (NEG) Urine Ethyl Alcohol Neg (NEG) Lactic Acid Level 1.1 mmol/L (0.4-2.0) White Blood Count 6.4 x10^3/uL (4.0-11.0) Red Blood Count 3.06 x10^6/uL (4.30-5.70) Hemoglobin 8.0 g/dL (13.0-17.5) Hematocrit 25.6 % (39.0-53.0) Mean Corpuscular Volume 84 fL (79-100) Mean Corpuscular Hemoglobin 26 pg (25-35) Mean Corpuscular Hemoglobin Concent 31 g/dL (31-37) Red Cell Distribution Width 17.5 % (11.5-14.5) Platelet Count 330 x10^3/uL (140-400) Neutrophils (%) (Auto) 93 % (31-73) Lymphocytes (%) (Auto) 4 % (24-48) Monocytes (%) (Auto) 2 % (0-9) Eosinophils (%) (Auto) 0 % (0-3) Basophils (%) (Auto) 0 % (0-3) Neutrophils # (Auto) 6.0 x10^3/uL (1.8-7.7) Lymphocytes # (Auto) 0.3 x10^3/uL (1.0-4.8) Monocytes # (Auto) 0.1 x10^3/uL (0.0-1.1) Eosinophils # (Auto) 0.0 x10^3/uL (0.0-0.7) Basophils # (Auto) 0.0 x10^3/uL (0.0-0.2) Segmented Neutrophils % 87 % (35-66) Band Neutrophils % 3 % (0-9) Lymphocytes % 7 % (24-48) Monocytes % 2 % (0-10) Eosinophils % 1 % (0-5) Platelet Estimate Adequate (ADEQUATE) Sodium Level 141 mmol/L (136-145) Potassium Level 3.7 mmol/L (3.5-5.1) Chloride Level 106 mmol/L (98-107) Carbon Dioxide Level 25 mmol/L (21-32) Anion Gap 10 (6-14) Blood Urea Nitrogen 12 mg/dL (8-26) Creatinine 1.0 mg/dL (0.7-1.3) Estimated GFR (Cockcroft-Gault) 90.5 Glucose Level 109 mg/dL (70-99) Calcium Level 8.2 mg/dL (8.5-10.1) O2 Saturation 94 % (92-99) Arterial Blood pH 7.50 (7.35-7.45) Arterial Blood pCO2 at Patient Temp 27 mmHg (35-46) Arterial Blood pO2 at Patient Temp 68 mmHg (65-108) Arterial Blood HCO3 21 mmol/L (21-28) Arterial Blood Base Excess -2 mmol/L (-3-3) FiO2 21 Medications Active Scripts Medications Dose Route/Sig Max Daily Dose Days Date Category Citalopram Hbr (Citalopram Hydrobromide) 40 Mg Tablet 40 Mg PO DAILY 06/29/19 Reported Fluticasone Propionate Nasal [place] (Fluticasone Propionate) 16 Gm [place].susp 16 Gm AC DAILY 06/29/19 Reported Impression . IMPRESSION: 1. Acute hypercapnic hypoxemic respiratory failure. 2. Severe metabolic acidosis secondary to increased work of breathing. 3. Acute pulmonary edema. 4. Uncontrolled hypertension/hypertensive crisis. 5. Chronic anemia. 6. Tobacco dependent. 7. Chronic obstructive pulmonary disease, unknown FEV1. Plan . 1. Recommend continue oxygen supplementation. 2. IV Lasix. 3. No clinical signs of pneumonia, no need for antibiotics. 4. No significant evidence of wheezing. Recommend no steroids at this time. 5. Case was discussed with Dr. Lopez, the patient may require ischemic workup. We will continue adequate blood pressure control. Follow clinical course. YUDI CARBALLO MD Jun 30, 2019 12:39
[2019-06-30] MEDS: ENOXAPARIN 40 MG/0.4 ML SYRINGE. SQ SCH (13:00)
--- NOTE | 2019-06-30 13:25 | CARD ---
MR#: [id number] Date of Study: 06/30/2019 Ordering Physician: LEANDRA CANTU, Referring Physician: LEANDRA CANTU, Tech: STACY DUQUE RTR APPROVED REPORT Technologist: STACY DUQUE RTR Nurse: DAKOTA COLLADO RN Procedure(s) performed: MODERATE SEDATION TIME: 15 MIN FLUORO TIME: 1.8 MIN DOSE: 19.7 CONTRAST: 27CC VISI C, Coronary Angiography HISTORY : The patient is a 64 year-old male with a history of . INDICATION The indication(s) include : LBBB, dyspnea. [facility] Clinical Frailty Scale [facility] Clinical Frailty Scale: Moderately Frail Heart Failure Heart Failure: Yes If Yes, Newly Diagnosed: Yes If Yes, HF Type: Systolic If Yes, NYHA Class: Class III PROCEDURE NARRATIVE INFORMED CONSENT: After explaining the risks and benefits of the procedure and alternatives, informed consent was obtained. The patient was brought electively to the cardiac catheterization lab. A timeout was performed confi rming the patient's name, date of , procedure, and site of procedure. All necessary personnel w ere wearing the appropriate protective equipment and radiation monitor devices. (See nursing notes for medications administered). ACCESS: The right wrist was sterilely prepped and draped in the usual fashion. The right wrist was infiltrat ed with 1 mL of 2% lidocaine for subcutaneous anesthesia. A 6 [place] Terumo glide sheath was inserte d into the right radial artery without difficulty. CORONARY ANGIOGRAPHY: Right and left coronary angiography was performed using a 6Fr TIG 4.0 catheter. Left ventricular en d diastolic pressure was obtained with a pigtail catheter and pullback was performed after left ventr iculography. All catheter exchanges and advancements were performed over a guidewire. CLOSURE: At case completion the right radial sheath was removed and a Terumo radial band was applied with 13 m l of air. COMPLICATIONS: The patient tolerated the procedure well and there were no immediate complications. FINDINGS: HEMODYNAMICS: LVEDP 15 mm Hg No gradient on LV to aortic pullback. AO: 128/78 LEFT VENTRICULOGRAM: Deferred due to known CMP with EF of 25% CORONARY ANGIOGRAPHY: LM is a large caliber vessel with normal angiographic appearance. LAD is a large caliber vessel with mild diffuse irregularities of 20%. LCx is a moderate caliber non-dominant vessel with normal angiographic appearance. OM1 is a moderate caliber vessel with normal angiographic appearance. RCA is a large caliber dominant vessel with normal angiographic appearance. RPDA and RPL are moderate caliber vessels with normal angiographic appearance. Conclusion 1. Normal left sided filling pressures. 2. Non-obstructive coronary disease Recommendations Aggressive medical therapy for cardiomyopathy. Signed by : Leandra Cantu, Electronically Approved : 06/30/2019 13:24:55
--- NOTE | 2019-06-30 13:39 | PDOC ---
PULMONARY PROGRESS NOTES Vitals Vital Signs Date Time Temp Pulse Resp B/P (MAP) Pulse Ox O2 Delivery O2 Flow Rate FiO2 06/30/19 12:45 95 Nasal Cannula 2.0 06/30/19 12:27 73 12 06/30/19 10:11 97.6 104/61 (75) 97.6 Labs Laboratory Tests Test 06/28/19 20:20 06/28/19 20:36 06/28/19 20:40 06/28/19 21:00 White Blood Count 8.5 x10^3/uL (4.0-11.0) Red Blood Count 3.21 x10^6/uL (4.30-5.70) Hemoglobin 8.3 g/dL (13.0-17.5) Hematocrit 27.3 % (39.0-53.0) Mean Corpuscular Volume 85 fL (79-100) Mean Corpuscular Hemoglobin 26 pg (25-35) Mean Corpuscular Hemoglobin Concent 30 g/dL (31-37) Red Cell Distribution Width 18.2 % (11.5-14.5) Platelet Count 392 x10^3/uL (140-400) Neutrophils (%) (Auto) 55 % (31-73) Lymphocytes (%) (Auto) 36 % (24-48) Monocytes (%) (Auto) 7 % (0-9) Eosinophils (%) (Auto) 2 % (0-3) Basophils (%) (Auto) 1 % (0-3) Neutrophils # (Auto) 4.7 x10^3/uL (1.8-7.7) Lymphocytes # (Auto) 3.0 x10^3/uL (1.0-4.8) Monocytes # (Auto) 0.6 x10^3/uL (0.0-1.1) Eosinophils # (Auto) 0.2 x10^3/uL (0.0-0.7) Basophils # (Auto) 0.1 x10^3/uL (0.0-0.2) Prothrombin Time 14.7 SEC (11.7-14.0) Prothromb Time International Ratio 1.2 (0.8-1.1) Activated Partial Thromboplast Time 26 SEC (24-38) D-Dimer (Ingrid) 1.05 ug/mlFEU (0.00-0.50) Sodium Level 143 mmol/L (136-145) Potassium Level 3.4 mmol/L (3.5-5.1) Chloride Level 104 mmol/L (98-107) Carbon Dioxide Level 19 mmol/L (21-32) Anion Gap 20 (6-14) Blood Urea Nitrogen 11 mg/dL (8-26) Creatinine 1.2 mg/dL (0.7-1.3) Estimated GFR (Cockcroft-Gault) 73.5 BUN/Creatinine Ratio 9 (6-20) Glucose Level 276 mg/dL (70-99) Lactic Acid Level 8.1 mmol/L (0.4-2.0) Calcium Level 8.3 mg/dL (8.5-10.1) Magnesium Level 2.2 mg/dL (1.8-2.4) Total Bilirubin 0.3 mg/dL (0.2-1.0) Aspartate Amino Transf (AST/SGOT) 36 U/L (15-37) Alanine Aminotransferase (ALT/SGPT) 30 U/L (16-63) Alkaline Phosphatase 136 U/L (46-116) Creatine Kinase 232 U/L (39-308) Troponin I Quantitative 0.051 ng/mL (0.000-0.055) LG-Lfw-A-Type Natriuretic Peptide 2585 pg/mL (0-124) Total Protein 6.2 g/dL (6.4-8.2) Albumin 3.2 g/dL (3.4-5.0) Albumin/Globulin Ratio 1.1 (1.0-1.7) Lipase 105 U/L (73-393) Thyroid Stimulating Hormone (TSH) 1.343 uIU/mL (0.358-3.74) Bedside Troponin I 0.03 ng/ml (<0.08) O2 Saturation 73 % (92-99) Arterial Blood pH 7.10 (7.35-7.45) Arterial Blood pCO2 at Patient Temp 57 mmHg (35-46) Arterial Blood pO2 at Patient Temp 54 mmHg (65-108) Arterial Blood HCO3 17 mmol/L (21-28) Arterial Blood Base Excess -12 mmol/L (-3-3) FiO2 100 Influenza Type A Antigen Negative (NEGATIVE) Influenza Type B Antigen Negative (NEGATIVE) Test 06/28/19 22:30 2/2/20 00:15 06/29/19 02:00 06/29/19 09:55 Urine Collection Type Unknown Urine Color Yellow Urine Clarity Clear Urine pH 5.5 Urine Specific [place] 1.020 Urine Protein Negative mg/dL (NEG-TRACE) Urine Glucose (UA) >=1000 mg/dL (NEG) Urine Ketones (Stick) Negative mg/dL (NEG) Urine Blood Negative (NEG) Urine Nitrite Negative (NEG) Urine Bilirubin Negative (NEG) Urine Urobilinogen Dipstick 0.2 mg/dL (0.2 mg/dL) Urine Leukocyte Esterase Negative (NEG) Urine RBC 0 /HPF (0-2) Urine WBC Occ /HPF (0-4) Urine Bacteria 0 /HPF (0-FEW) Urine Opiates Screen Neg (NEG) Urine Methadone Screen Neg (NEG) Urine Barbiturates Neg (NEG) Urine Phencyclidine Screen Neg (NEG) Urine Amphetamine/Methamphetamine Neg (NEG) Urine Benzodiazepines Screen Neg (NEG) Urine Cocaine Screen Neg (NEG) Urine Cannabinoids Screen Neg (NEG) Urine Ethyl Alcohol Neg (NEG) Lactic Acid Level 1.1 mmol/L (0.4-2.0) White Blood Count 6.4 x10^3/uL (4.0-11.0) Red Blood Count 3.06 x10^6/uL (4.30-5.70) Hemoglobin 8.0 g/dL (13.0-17.5) Hematocrit 25.6 % (39.0-53.0) Mean Corpuscular Volume 84 fL (79-100) Mean Corpuscular Hemoglobin 26 pg (25-35) Mean Corpuscular Hemoglobin Concent 31 g/dL (31-37) Red Cell Distribution Width 17.5 % (11.5-14.5) Platelet Count 330 x10^3/uL (140-400) Neutrophils (%) (Auto) 93 % (31-73) Lymphocytes (%) (Auto) 4 % (24-48) Monocytes (%) (Auto) 2 % (0-9) Eosinophils (%) (Auto) 0 % (0-3) Basophils (%) (Auto) 0 % (0-3) Neutrophils # (Auto) 6.0 x10^3/uL (1.8-7.7) Lymphocytes # (Auto) 0.3 x10^3/uL (1.0-4.8) Monocytes # (Auto) 0.1 x10^3/uL (0.0-1.1) Eosinophils # (Auto) 0.0 x10^3/uL (0.0-0.7) Basophils # (Auto) 0.0 x10^3/uL (0.0-0.2) Segmented Neutrophils % 87 % (35-66) Band Neutrophils % 3 % (0-9) Lymphocytes % 7 % (24-48) Monocytes % 2 % (0-10) Eosinophils % 1 % (0-5) Platelet Estimate Adequate (ADEQUATE) Sodium Level 141 mmol/L (136-145) Potassium Level 3.7 mmol/L (3.5-5.1) Chloride Level 106 mmol/L (98-107) Carbon Dioxide Level 25 mmol/L (21-32) Anion Gap 10 (6-14) Blood Urea Nitrogen 12 mg/dL (8-26) Creatinine 1.0 mg/dL (0.7-1.3) Estimated GFR (Cockcroft-Gault) 90.5 Glucose Level 109 mg/dL (70-99) Calcium Level 8.2 mg/dL (8.5-10.1) O2 Saturation 94 % (92-99) Arterial Blood pH 7.50 (7.35-7.45) Arterial Blood pCO2 at Patient Temp 27 mmHg (35-46) Arterial Blood pO2 at Patient Temp 68 mmHg (65-108) Arterial Blood HCO3 21 mmol/L (21-28) Arterial Blood Base Excess -2 mmol/L (-3-3) FiO2 21 Medications Active Scripts Medications Dose Route/Sig Max Daily Dose Days Date Category Citalopram Hbr (Citalopram Hydrobromide) 40 Mg Tablet 40 Mg PO DAILY 06/29/19 Reported Fluticasone Propionate Nasal [place] (Fluticasone Propionate) 16 Gm [place].susp 16 Gm AC DAILY 06/29/19 Reported Impression . IMPRESSION: 1. Acute hypercapnic hypoxemic respiratory failure. 2. Severe metabolic acidosis secondary to increased work of breathing. 3. Acute pulmonary edema. 4. Uncontrolled hypertension/hypertensive crisis. 5. Chronic anemia. 6. Tobacco dependent. 7. Chronic obstructive pulmonary disease, unknown FEV1. 8. NONISC CM 20% CATH FINDINGS: HEMODYNAMICS: LVEDP 15 mm Hg No gradient on LV to aortic pullback. AO: 128/78 LEFT VENTRICULOGRAM: Deferred due to known CMP with EF of 25% CORONARY ANGIOGRAPHY: LM is a large caliber vessel with normal angiographic appearance. LAD is a large caliber vessel with mild diffuse irregularities of 20%. LCx is a moderate caliber non-dominant vessel with normal angiographic appearance. OM1 is a moderate caliber vessel with normal angiographic appearance. RCA is a large caliber dominant vessel with normal angiographic appearance. RPDA and RPL are moderate caliber vessels with normal angiographic appearance. Conclusion 1. Normal left sided filling pressures. 2. Non-obstructive coronary disease Recommendations Aggressive medical therapy for cardiomyopathy. Plan . CATH REPORT NOTED AGREESSIVE MED MANAGEMTN RESP STATUS IS BETTER TODAY DIURESE HOME SOON YUDI CARBALLO MD Jun 30, 2019 13:39
--- NOTE | 2019-06-30 14:07 | PDOC ---
CARDIO Progress Notes Date and Time Date of Service 06/30/19 Time of Evaluation 1340 Subjective Subjective: No Chest Pain, No Palpitations, No Dizziness, Other (BHARATI much better ) Vitals Vitals Vital Signs Date Time Temp Pulse Resp B/P (MAP) Pulse Ox O2 Delivery O2 Flow Rate FiO2 06/30/19 12:45 95 Nasal Cannula 2.0 06/30/19 12:27 73 12 06/30/19 10:11 97.6 104/61 (75) 97.6 Weight Weight [ ] Input and Output Intake and Output Intake and Output 06/30/19 07:00 Intake Total 1290 ml Output Total 2250 ml Balance -960 ml Intake Oral 1290 ml Output Urine Total 2250 ml Microbiology Micro Microbiology 06/28/19 Blood Culture - Preliminary, Resulted NO GROWTH AFTER 1 DAY Physical Exam HEENT: Neck Supple W Full Motion Chest: Symmetric LUNGS: Other (fine expiratory wheezes ) Heart: S1S2, RRR Abdomen: Soft N/T Extremities: Other (right radial pressure band intact ) Neurology: alert, oriented, follow commands Assessment Assessment 1. Acute respiratory failure with AE COPD and a/c systolic CHF 2. Acute on chronic systolic CHF; cath with normal left sided filling pressures 3. NICMl; LVEF 20-25%. Cath without obstructive disease 4. Hypertension; controlled 5. Tobaccoism; discussed/encouraged cessation Recommendations Continue HF optimization with low-dose lisinopril and coreg Lung optimization Follow up in our office as scheduled. Repeat echo on an outpatient basis. Will plan for AICD placement if LVEF remains significantly depressed. RAJESH HARPER APRN Jun 30, 2019 14:07
--- NOTE | 2019-06-30 15:53 | RAD ---
EXAM: PORTABLE CHEST 1V INDICATION: CHF. TECHNIQUE: Single view COMPARISON: June 28, 2019 FINDINGS: The heart is moderately enlarged. The great vessels appear unremarkable. There is no hilar or mediastinal mass. Findings of pulmonary edema evident previously have improved, leaving minimal residual pulmonary vascular congestion. There is no pleural effusion or pneumothorax. There are no significant osseous abnormalities. IMPRESSION: Residual cardiomegaly with much improved pulmonary vascular congestion and resolved edema. Electronically signed by: Alexis Wilkerson MD (06/30/2019 3:50 PM) [facility]
--- NOTE | 2019-06-30 16:32 | PDOC3 ---
Discharge Summary Visit Information Date of Admission: Jun 29, 2019 Date of Discharge: Jun 30, 2019 Admitting Diagnosis Comment: Multifactorial respiratory failure Acute on chronic systolic and diastolic heart failure COPD Final Diagnosis Problems Medical Problems: (1) Acute respiratory acidosis Status: Acute (2) Acute respiratory distress Status: Acute (3) Anemia Status: Acute (4) Pulmonary edema Status: Acute (5) Tobacco abuse Status: Acute Brief Hospital Course Allergies Allergies Coded Allergies Type Severity Reaction Last Updated Verified No Known Drug Allergies 06/28/19 No Vital Signs Vital Signs Date Time Temp Pulse Resp B/P (MAP) Pulse Ox O2 Delivery O2 Flow Rate FiO2 06/30/19 15:34 76 16 98 Room Air 06/30/19 14:37 97.9 98/59 (72) 2.0 97.9 Lab Results Laboratory Tests Test 06/28/19 20:20 06/28/19 20:36 06/28/19 20:40 06/28/19 21:00 White Blood Count 8.5 x10^3/uL (4.0-11.0) Red Blood Count 3.21 x10^6/uL (4.30-5.70) Hemoglobin 8.3 g/dL (13.0-17.5) Hematocrit 27.3 % (39.0-53.0) Mean Corpuscular Volume 85 fL (79-100) Mean Corpuscular Hemoglobin 26 pg (25-35) Mean Corpuscular Hemoglobin Concent 30 g/dL (31-37) Red Cell Distribution Width 18.2 % (11.5-14.5) Platelet Count 392 x10^3/uL (140-400) Neutrophils (%) (Auto) 55 % (31-73) Lymphocytes (%) (Auto) 36 % (24-48) Monocytes (%) (Auto) 7 % (0-9) Eosinophils (%) (Auto) 2 % (0-3) Basophils (%) (Auto) 1 % (0-3) Neutrophils # (Auto) 4.7 x10^3/uL (1.8-7.7) Lymphocytes # (Auto) 3.0 x10^3/uL (1.0-4.8) Monocytes # (Auto) 0.6 x10^3/uL (0.0-1.1) Eosinophils # (Auto) 0.2 x10^3/uL (0.0-0.7) Basophils # (Auto) 0.1 x10^3/uL (0.0-0.2) Prothrombin Time 14.7 SEC (11.7-14.0) Prothromb Time International Ratio 1.2 (0.8-1.1) Activated Partial Thromboplast Time 26 SEC (24-38) D-Dimer (Ingrid) 1.05 ug/mlFEU (0.00-0.50) Sodium Level 143 mmol/L (136-145) Potassium Level 3.4 mmol/L (3.5-5.1) Chloride Level 104 mmol/L (98-107) Carbon Dioxide Level 19 mmol/L (21-32) Anion Gap 20 (6-14) Blood Urea Nitrogen 11 mg/dL (8-26) Creatinine 1.2 mg/dL (0.7-1.3) Estimated GFR (Cockcroft-Gault) 73.5 BUN/Creatinine Ratio 9 (6-20) Glucose Level 276 mg/dL (70-99) Lactic Acid Level 8.1 mmol/L (0.4-2.0) Calcium Level 8.3 mg/dL (8.5-10.1) Magnesium Level 2.2 mg/dL (1.8-2.4) Total Bilirubin 0.3 mg/dL (0.2-1.0) Aspartate Amino Transf (AST/SGOT) 36 U/L (15-37) Alanine Aminotransferase (ALT/SGPT) 30 U/L (16-63) Alkaline Phosphatase 136 U/L (46-116) Creatine Kinase 232 U/L (39-308) Troponin I Quantitative 0.051 ng/mL (0.000-0.055) QK-Cep-N-Type Natriuretic Peptide 2585 pg/mL (0-124) Total Protein 6.2 g/dL (6.4-8.2) Albumin 3.2 g/dL (3.4-5.0) Albumin/Globulin Ratio 1.1 (1.0-1.7) Lipase 105 U/L (73-393) Thyroid Stimulating Hormone (TSH) 1.343 uIU/mL (0.358-3.74) Bedside Troponin I 0.03 ng/ml (<0.08) O2 Saturation 73 % (92-99) Arterial Blood pH 7.10 (7.35-7.45) Arterial Blood pCO2 at Patient Temp 57 mmHg (35-46) Arterial Blood pO2 at Patient Temp 54 mmHg (65-108) Arterial Blood HCO3 17 mmol/L (21-28) Arterial Blood Base Excess -12 mmol/L (-3-3) FiO2 100 Influenza Type A Antigen Negative (NEGATIVE) Influenza Type B Antigen Negative (NEGATIVE) Test 06/28/19 22:30 06/29/19 00:15 06/29/19 02:00 06/29/19 09:55 Urine Collection Type Unknown Urine Color Yellow Urine Clarity Clear Urine pH 5.5 Urine Specific [place] 1.020 Urine Protein Negative mg/dL (NEG-TRACE) Urine Glucose (UA) >=1000 mg/dL (NEG) Urine Ketones (Stick) Negative mg/dL (NEG) Urine Blood Negative (NEG) Urine Nitrite Negative (NEG) Urine Bilirubin Negative (NEG) Urine Urobilinogen Dipstick 0.2 mg/dL (0.2 mg/dL) Urine Leukocyte Esterase Negative (NEG) Urine RBC 0 /HPF (0-2) Urine WBC Occ /HPF (0-4) Urine Bacteria 0 /HPF (0-FEW) Urine Opiates Screen Neg (NEG) Urine Methadone Screen Neg (NEG) Urine Barbiturates Neg (NEG) Urine Phencyclidine Screen Neg (NEG) Urine Amphetamine/Methamphetamine Neg (NEG) Urine Benzodiazepines Screen Neg (NEG) Urine Cocaine Screen Neg (NEG) Urine Cannabinoids Screen Neg (NEG) Urine Ethyl Alcohol Neg (NEG) Lactic Acid Level 1.1 mmol/L (0.4-2.0) White Blood Count 6.4 x10^3/uL (4.0-11.0) Red Blood Count 3.06 x10^6/uL (4.30-5.70) Hemoglobin 8.0 g/dL (13.0-17.5) Hematocrit 25.6 % (39.0-53.0) Mean Corpuscular Volume 84 fL (79-100) Mean Corpuscular Hemoglobin 26 pg (25-35) Mean Corpuscular Hemoglobin Concent 31 g/dL (31-37) Red Cell Distribution Width 17.5 % (11.5-14.5) Platelet Count 330 x10^3/uL (140-400) Neutrophils (%) (Auto) 93 % (31-73) Lymphocytes (%) (Auto) 4 % (24-48) Monocytes (%) (Auto) 2 % (0-9) Eosinophils (%) (Auto) 0 % (0-3) Basophils (%) (Auto) 0 % (0-3) Neutrophils # (Auto) 6.0 x10^3/uL (1.8-7.7) Lymphocytes # (Auto) 0.3 x10^3/uL (1.0-4.8) Monocytes # (Auto) 0.1 x10^3/uL (0.0-1.1) Eosinophils # (Auto) 0.0 x10^3/uL (0.0-0.7) Basophils # (Auto) 0.0 x10^3/uL (0.0-0.2) Segmented Neutrophils % 87 % (35-66) Band Neutrophils % 3 % (0-9) Lymphocytes % 7 % (24-48) Monocytes % 2 % (0-10) Eosinophils % 1 % (0-5) Platelet Estimate Adequate (ADEQUATE) Sodium Level 141 mmol/L (136-145) Potassium Level 3.7 mmol/L (3.5-5.1) Chloride Level 106 mmol/L (98-107) Carbon Dioxide Level 25 mmol/L (21-32) Anion Gap 10 (6-14) Blood Urea Nitrogen 12 mg/dL (8-26) Creatinine 1.0 mg/dL (0.7-1.3) Estimated GFR (Cockcroft-Gault) 90.5 Glucose Level 109 mg/dL (70-99) Calcium Level 8.2 mg/dL (8.5-10.1) O2 Saturation 94 % (92-99) Arterial Blood pH 7.50 (7.35-7.45) Arterial Blood pCO2 at Patient Temp 27 mmHg (35-46) Arterial Blood pO2 at Patient Temp 68 mmHg (65-108) Arterial Blood HCO3 21 mmol/L (21-28) Arterial Blood Base Excess -2 mmol/L (-3-3) FiO2 21 Brief Hospital Course Mr. Patton is a 64 old male with history of chronic tobacco abuse. The patient has a chronic obstructive pulmonary disease most likely given his greater than 98-uuto-mnrm history of smoking. He does not have a known FEV1 the patient was seen with uncontrolled hypertension hypertensive crisis which may have triggered and acute pulmonary edema picture. The patient was diuresed du ring his hospital stay and was taken to the cardiac catheter lab in order to assess his coronaries. There were no flow limiting lesions noted he recovered well from his procedure and was deemed appropriate for discharge with instructions to follow-up with cardiology in the outpatient setting and also with pulmonology. Tobacco cessation counseling was done during. The patient was in good spirits to be discharged home and acknowledged understanding of all the instructions. Physical exam for today: Lungs clear to auscultation bilaterally with good inspiratory effort Cardiovascular S1-S2 regular rhythm no murmurs calls or rubs Neurological cranial nerves II-12 intact motor or sensory deficits appreciated Discharge Information Condition at Discharge: Improved Follow Up: Weeks Disposition/Orders: D/C to Home Scheduled Citalopram Hydrobromide (Citalopram Hbr) 40 Mg Tablet, 40 MG PO DAILY for anxiety for 30 Days, #30 Prescribed by: ALEXY OWENS MD on 06/30/19 1635 Furosemide (Lasix) 20 Mg Tablet, 1 TAB PO Q48H for CHF for 30 Days, #14 Ref 0 Prescribed by: ALEXY OWENS MD on 06/30/19 1635 Lisinopril (Lisinopril) 5 Mg Tablet, 2.5 MG PO DAILY for CHF for 30 Days, #15 Prescribed by: ALEXY OWENS MD on 06/30/19 1635 Metoprolol Succinate (Metoprolol Succinate ( Xl )) 25 Mg Tab.er.24h, 1 TAB PO DAILY for CHF, #30 Ref 5 Prescribed by: ALEXY OWENS MD on 06/30/19 1635 Scheduled PRN Albuterol Sulfate (Proair Hfa) 8.5 Gm Hfa.aer.ad, 2.5 MG NEB PRN Q2HR PRN for DYSPNEA for 30 Days, #1 Prescribed by: ALEXY OWENS MD on 06/30/19 1635 Discontinued Medications Fluticasone Propionate (Fluticasone Propionate Nasal Ramey) 16 Gm Ramey.susp, 16 GM AC DAILY for sinus, (Reported) Entered as Reported by: JOSE SEQUEIRA on 06/29/19750 Last Taken: UNKNOWN on Unknown Date & Time Last Action: New Order on 06/29/19750 by ALEXY LOVE MD Jun 30, 2019 16:32
[2019-06-30] MEDS ORDERED: ALBU2.5V8 NEB (16:35)
[2019-06-30] MEDS ORDERED: LISI-338 PO (16:35)
[2019-06-30] MEDS ORDERED: METO-239 PO (16:35)
[2019-06-30] MEDS ORDERED: CITA40TA5 PO (16:35)
[2019-06-30] MEDS ORDERED: FURO-69 PO (16:35)
--- NOTE | 2019-06-30 17:16 | NUR ---
Discharge Note: LAYO BUTLER Discharge instructions and discharge home medications reviewed with Patient and a copy given. All questions have been answered and understanding verbalized. The following instructions and handouts were given: post heart cath handout, albuterol, lasix, metoprolol, and lisinopril Patient discharged to home with nephew via wheelchair
== END 2019-06-30 17:17 | disposition home or self-care (01) | DRG 286 ==
LOC: ER 20:09 → 1 WEST ICU 20:40 → 2 NORTH 06-29 20:22
PROVIDERS: ADMIT Family Medicine; ATTEND Family Medicine
PROC: 5A09357 Assistance with Respiratory Ventilation, Less than 24 Consecutive Hours, Continuous Positive Airway Pressure (ICD-10-PCS; principal; 2019-06-28)
PROC: 4A023N7 Measurement of Cardiac Sampling and Pressure, Left Heart, Percutaneous Approach (ICD-10-PCS; 2019-06-30)
PROC: B2111ZZ Fluoroscopy of Multiple Coronary Arteries using Low Osmolar Contrast (ICD-10-PCS; 2019-06-30)
PROC: B2151ZZ Fluoroscopy of Left Heart using Low Osmolar Contrast (ICD-10-PCS; 2019-06-30)
DX: I11.0 Hypertensive heart disease with heart failure (principal); J96.01 Acute respiratory failure with hypoxia; J96.02 Acute respiratory failure with hypercapnia; I16.9 Hypertensive crisis, unspecified; E87.2 Acidosis; I50.43 Acute on chronic combined systolic (congestive) and diastolic (congestive) heart failure; I42.9 Cardiomyopathy, unspecified; J44.9 Chronic obstructive pulmonary disease, unspecified; F17.210 Nicotine dependence, cigarettes, uncomplicated; D64.9 Anemia, unspecified; I44.7 Left bundle-branch block, unspecified; Z71.6 Tobacco abuse counseling
CPT/HCPCS: 36415; 36600; 71045; 80048; 80053; 80307; 81001; 82550; 82805; 83605; 83690; 83735; 83880; 84443; 84484; 85007; 85025; 85379; 85610; 85730; 87040; 87804; 93005; 93306; 93458; 94640; 94660; 94760; 96365; 96368; 96375; 99152; 99292; C1769; C1892; J1644; J1650; J1940; J2250; J2543; J2930; J3010; J3370; J3490; J7040; J7620; Q9967; G0378

== ENCOUNTER → 2019-11-10 | Outpatient (CLI) | payer OTHER ==
[2019-06-30 17:05] VITALS: BP 105/66
[~2019-11-10] MED LIST: ALBU2.5V8 NEB; CITA40TA5 PO; FLUT16SP AC; FURO-69 PO; LISI-338 PO; METO-239 PO
--- NOTE | 2019-11-10 11:19 | KCIC ---
Noncontrast CT scan of the chest compared to similar exam dated July 30, 2017 for COPD, wheezing, difficulty breathing, 46 pack-year history of smoking, recently quit 4 months ago. TECHNIQUE: Contiguous helical 5 mm axial images are obtained from the thoracic inlet to the base of diaphragm. Sagittal and coronal reformations are evaluated. FINDINGS: Changes of COPD are present with centrilobular emphysema. This is mild and not significantly changed. No suspicious lung nodules or masses are identified. Small bandlike area of chronic scarring or atelectasis in lingula is again noted, and there is a similar small subsegmental band of atelectasis in the left lower lobe. No areas of pneumonic consolidation concerning for infection. Central airways are patent. Evaluation of the upper abdominal organs is limited by lack of IV contrast, however no suspicious morphologic abnormalities of the visualized upper abdominal organs are identified. There is worsening right ventricular enlargement. Consider echocardiography. Coronary artery calcifications are again identified, grossly unchanged. No suspicious adenopathy. No suspicious osteoblastic or osteolytic bone lesions. The previously described thyroid nodule is not definitely present on the current study. IMPRESSION: 1. Stable appearing mild centrilobular emphysema. No suspicious lung nodules or masses. 2. Worsening right ventricular enlargement. Consider further evaluation with echocardiography. 3. Linear bands of subsegmental atelectasis or scarring in the left lung. No lung parenchymal findings to suggest active pneumonic infiltrate. 4. Coronary artery calcifications. Para PQRS Compliance Statement: One or more of the following individualized dose reduction techniques were utilized for this examination: 1. Automated exposure control 2. Adjustment of the mA and/or kV according to patient size 3. Use of iterative reconstruction technique Electronically signed by: Wilfrid Wall MD (11/10/2019 11:16 AM) [id number]
== END ==
LOC: KCIC CT 09:30
PROVIDERS: ATTEND Family Medicine
DX: J43.2 Centrilobular emphysema (principal); I51.7 Cardiomegaly; I25.10 Atherosclerotic heart disease of native coronary artery without angina pectoris
CPT/HCPCS: 71250

== ENCOUNTER → 2020-02-06 | Outpatient (CLI) | payer OTHER ==
[2019-06-30 17:05] VITALS: BP 105/66
--- NOTE | 2020-02-06 15:41 | CARD ---
MR#: [id number] Date of Study: 02/06/2020 Ordering Physician: LEANDRA LOEPZ, Referring Physician: LEANDRA LOPEZ, Tech: Katelynn Guevara APPROVED REPORT EXAM: Two-dimensional and M-mode echocardiogram with Doppler and color Doppler. Other Information Quality : AverageHR: 66bpm INDICATION Cardiomyopathy Congestive Heart Failure 2D DIMENSIONS RVDd3.6 (2.9-3.5cm)Left Atrium(2D)4.0 (1.6-4.0cm) IVSd1.0 (0.7-1.1cm)Aortic Root(2D)3.1 (2.0-3.7cm) LVDd5.9 (3.9-5.9cm)LVOT Diameter1.8 (1.8-2.4cm) PWd1.0 (0.7-1.1cm)LVDs4.8 (2.5-4.0cm) FS (%) 19.3 %SV68.9 ml LVEF(%)39.1 (>50%) Aortic Valve AoV Peak Mendoza.167.6cm/sAoV VTI26.2cm AO Peak GR.11.2mmHgLVOT Peak Mendoza.122.6cm/s LVOT VTI 18.77cmAO Mean GR.5mmHg WATSON (VMAX)1.75hi0CMA (VTI)1.88cm2 Mitral Valve MV E Luhbdiwg51.5cm/sMV E Peak Gr.167mmHg MV DECEL [id number] A Ngnqyzzn36.0cm/s MV E Mean Gr.2mmHgMV IUP93cf E/A Ratio1.1MVA (PHT)4.41cm2 TDI E/Lateral E'13.3E/Medial E'14.3 Pulmonary Valve PV Peak Tdfadabw34.0cm/sPV Peak Grad.3mmHg Tricuspid Valve TR P. Jlpqxwoa693py/sRAP XPTLHYUJ4cpVc TR Peak Gr.37unIyWXRK24jzQq Pulmonary Vein S1 Deigshtp00.3cm/sD2 Njfvialz38.7cm/s PVa ityslnta117jxdj LEFT VENTRICLE The Left Ventricle is borderline dilated. There is borderline concentric left ventricular hypertrophy . The systolic function is severely impaired. EF 30% There is global hypokinesis of the left ventricl e. Septal motion suggestive of conduction defect. Transmitral Doppler flow pattern is Grade II-pseudo normal filling dynamics. RIGHT VENTRICLE The right ventricle is normal size. There is normal right ventricular wall thickness. The right ventr icular systolic function is normal. ATRIA The left atrium size is normal. The right atrium size is normal. The interatrial septum is intact wit h no evidence for an atrial septal defect or patent foramen ovale as noted on 2-D or Doppler imaging. AORTIC VALVE The aortic valve is normal in structure and function. Doppler and Color Flow revealed no significant aortic regurgitation. There is no significant aortic valvular stenosis. Calculated aortic valve area is 2.01 cm2 with maximum pressure gradient of 13 mmHg and mean pressure gradient of 6 mmHg. MITRAL VALVE The mitral valve is mildly thickened with restricted posterior leaflet and dilated annulus. There is no evidence of mitral valve prolapse. There is no mitral valve stenosis with a mean gradient of 1.9 m mHg. Doppler and Color-flow revealed severe mitral regurgitation. TRICUSPID VALVE The tricuspid valve is normal in structure and function. Doppler and Color Flow revealed trace to mil d tricuspid regurgitation with an estimated PAP of 46 mmHg. There is no tricuspid valve stenosis. PULMONIC VALVE The pulmonic valve is not well visualized. Doppler and Color Flow revealed trace pulmonic valvular re gurgitation. There is no pulmonic valvular stenosis. GREAT VESSELS The aortic root is normal in size. The ascending aorta is normal in size. The IVC is normal in size a nd collapses >50% with inspiration. PERICARDIAL EFFUSION There is no evidence of significant pericardial effusion. Critical Notification Critical Value: No <Conclusion> The systolic function is severely impaired. EF 30% There is global hypokinesis of the left ventricle. Septal motion suggestive of conduction defect. Doppler and Color-flow revealed severe mitral regurgitation. Doppler and Color Flow revealed trace to mild tricuspid regurgitation with an estimated PAP of 46 mmH g. Signed by : Leandra Lopez, Electronically Approved : 02/06/2020 15:41:13
== END | disposition home or self-care (01) ==
LOC: ECHO 08:45
PROVIDERS: ATTEND Internal Medicine Cardiovascular Disease
DX: I08.1 Rheumatic disorders of both mitral and tricuspid valves (principal); I42.8 Other cardiomyopathies
CPT/HCPCS: 93306

== ENCOUNTER → 2020-02-19 | Outpatient (CLI) | payer OTHER ==
[2019-06-30 17:05] VITALS: BP 105/66
[~2020-02-19] MED LIST changes: +DICL75TA PO; +FERR236T2 PO; +LISI-334 PO; +LORA10TA55 PO; +MECO10005 PO; +SACU1TAB7 PO
== END | disposition home or self-care (01) ==
LOC: LAB 12:52
PROVIDERS: ATTEND Internal Medicine Cardiovascular Disease
DX: Z01.810 Encounter for preprocedural cardiovascular examination (principal); Z20.828 Contact with and (suspected) exposure to other viral communicable diseases
CPT/HCPCS: U0003-CS

== ENCOUNTER 2020-02-23 09:20 | Observation (INO) | payer OTHER ==
[~2020-02-23] VITALS: Ht 175.3 cm; Wt 70.6 kg
[~2020-02-23 09:20] MED LIST changes: -DICL75TA PO; -FERR236T2 PO; +HYDROmorphone 2 MG/ML VIAL IV PRN; +IV RINGERS,LACTATED 1000ML 1,000 ML IV SCH; +LIDOCAINE 1% PF 2 ML VIAL. ID PRN; -LISI-334 PO; -LORA10TA55 PO; -MECO10005 PO; +MORPHINE SULFATE 2 MG/ML VIAL. IV PRN; +PROCHLORPERAZINE 10 MG/2 ML VIAL. IV PRN; -SACU1TAB7 PO; +fentaNYL PF VIAL 100 MCG/2 ML VIAL IV PRN
[2020-02-23] MEDS ORDERED: SACU1TAB7 PO (09:39)
[2020-02-23] MEDS ORDERED: DICL75TA PO (09:39)
[2020-02-23] MEDS ORDERED: LORA10TA55 PO (09:39)
[2020-02-23] MEDS ORDERED: FERR236T2 PO (09:39)
[2020-02-23] MEDS ORDERED: LISI-334 PO (09:39)
[2020-02-23] MEDS ORDERED: MECO10005 PO (09:40)
[2020-02-23] MEDS ORDERED: ceFAZolin SODIUM IV Push 1 GM VIAL. IVP ONE ×3 (09:45→16:00)
--- NOTE | 2020-02-23 09:49 | EKG ---
[facility] [address] [place] [address] Test Date: 2020-02-23 Test Time: 09:46:06 Pat Name: LAYO BUTLER Department: Room: Gender: Summer Associate: [place] : 1955 Requested By: LIANA FERREIRA Order Number: [id number] Reading MD: Chandra Lopez MD Measurements Intervals [place] Rate: 58 P: 29 DE: 154 QRS: -13 QRSD: 134 T: 202 QT: 442 QTc: 433 Interpretive Statements SINUS RHYTHM LBBB Electronically Signed On 02-23-2020 12:59:49 CDT by Chandra Lopez MD
[2020-02-23] MEDS ORDERED: IODIXANOL 320 MG/ML 100 ML VIAL. ONE (10:00)
[2020-02-23] MEDS ORDERED: LIDOCAINE 2%/EPI 1:100,000 20 ML VIAL. ONE (10:00)
[2020-02-23 10:01] LABS: HEMATOCRIT 41.4 % (39.0-53.0); HEMOGLOBIN 14.2 g/dL (13.0-17.5); RED BLOOD COUNT 4.08 x10^6/uL (4.30-5.70); RED CELL DISTRIBUTION WIDTH 14.3 % (11.5-14.5); WHITE BLOOD COUNT 4.5 x10^3/uL (4.0-11.0)
[2020-02-23 10:05] VITALS: BP 151/93
[2020-02-23] MEDS ORDERED: PROPOFOL 100 ML IV ONE (10:08)
[2020-02-23] MEDS ORDERED: fentaNYL PF VIAL 250 MCG/5 ML VIAL ONE (10:09)
[2020-02-23] MEDS ORDERED: MIDAZOLAM HCL/PF 2 MG/2 ML VIAL. ONE (10:10)
[2020-02-23] MEDS ORDERED: KETAMINE HCL IN NACL, ISO-OSM 50 MG/5 ML SYRINGE ONE (10:10)
[2020-02-23 10:11] LABS: CALCIUM 8.7 mg/dL (8.5-10.1); GFR 90.5
[2020-02-23 10:29] LABS: PROTHROMBIN TIME PATIENT 13.7 SEC (11.7-14.0)
[2020-02-23] MEDS ORDERED: BACITRACIN 50,000 UNIT in IV NORMAL SALINE 250ML 250 ML IRR ONE (10:30)
[2020-02-23] MEDS ORDERED: LIDOCAINE 2%/EPI 1:100,000 20 ML VIAL. IJ ONE (11:00)
[2020-02-23] MEDS ORDERED: IODIXANOL 320 MG/ML 100 ML VIAL. IART ONE (11:30)
--- NOTE | 2020-02-23 13:02 | RAD ---
EXAM: Chest, single view. HISTORY: Pacemaker placement. COMPARISON: None. FINDINGS: A frontal view of the chest is obtained. There is a left cardiac pacemaker defibrillator in expected position. There is no pneumothorax. There is stable diffuse increased interstitial opacity. There is no consolidation, pleural effusion or pneumothorax. The heart is stable in size. IMPRESSION: 1. Left cardiac pacemaker defibrillator in expected position. 2. Stable suspected chronic diffuse interstitial prominence. Electronically signed by: Giovanna Ricketts MD (02/23/2020 12:59 PM) [id number]
--- NOTE | 2020-02-23 13:14 | CARD ---
MR#: [id number] Date of Study: 02/23/2020 Ordering Physician: LIANA VILLAFANA, Referring Physician: LIANA VILLAFANA, Tech: APPROVED REPORT EXAM Implantation of Medtronic biventricular implantable cardioverter defibrillator/cardiac resynchronizat ion therapy-defibrillator (BiV ICD/ELECTROPHYSIOLOGY NURSE PRACTITIONER-D) Measurement of defibrillation thresholds at the time of implantation flouro time 16.2 minutes dose 32.83 Gycm2 INDICATIONS Primary prevention of sudden cardiac and cardiac resynchronization therapy in a patient with ch ronic systolic heart failure, nonischemic cardiomyopathy with EF 30% and left bundle branch block IMPLANTED DEVICES After explaining the risks, benefits and alternative options, informed consent was obtained from dione ent patient was brought to the cardiac Seafood Clerk and his left chest and shoulder were prepped and drap ed in the usual fashion. 30 cc of 2% lidocaine was infiltrated into the skin and subcutaneous tissue s for local anesthesia. After initial attempts at obtaining venous access under fluoroscopy guidance were unsuccessful, a venogram was obtained and venous access obtained in the left subclavian vein us ing a micropuncture kit. This was then changed over a wire to a 9 Malagasy coronary sinus sheath. CS venogram was then obtained using contrast injections to identify the appropriate vein for placement o f left ventricular lead. A Medtronic quadripolar left ventricular lead model 953931, serial number Q [id number] was then advanced into the middle cardiac vein under fluoroscopy guidance. Venous access was again obtained in the left subclavian vein and 11 and 7 Malagasy sheaths inserted. A Medtronic bipolar active fixation right ventricular lead model 8831I96, serial number [id number] wa s positioned in the right ventricular apex under fluoroscopic guidance. Finally, a Medtronic bipolar active fixation right atrial lead model 883573, serial number [id number] was positioned in the right atrial appendage. The leads were secured into place and were attached to a Medtronic biventricular ICD/ELECTROPHYSIOLOGY NURSE PRACTITIONER-D generator model [id number], serial number [id number]. This was placed in the pocket that was subsequently closed in 3 layers. Hemostasis was secured. Ventricular fibrillation induced to check the defibrillation threshold. Patient successfully convert ed to sinus rhythm with 25 J shock therapy. The left ventricular lead showed impedance of 494 ohms a nd a threshold of 1 V. The right ventricular lead showed a sensing amplitude of 14.9 mV, impedance o f 513 ohms and a threshold of 0.7 V. The right atrial lead showed a sensing amplitude of 1.8 mV, imp edance of 494 ohms and a threshold of 0.5 V. Patient tolerated the procedure well. There were no im mediate complications. CONCLUSION Successful implantation of Medtronic biventricular ICD/ELECTROPHYSIOLOGY NURSE PRACTITIONER-D for primary prevention of sudden cardiac and cardiac resynchronization therapy in a patient with chronic systolic heart failure/nonisch emic cardiomyopathy with EF 30% and left bundle branch block. Defibrillation thresholds were measure d at the time of implantation. Signed by : Liana Villafana, Electronically Approved : 02/23/2020 13:13:28
[2020-02-23 15:17] VITALS: BP 140/94
[2020-02-23 19:40] VITALS: BP 162/91
[2020-02-23] MEDS: oxyCODONE/APAP 5/325 1 TAB TABLET PO PRN (19:58)
[2020-02-23 22:40] VITALS: BP 136/79
[2020-02-24 03:25] VITALS: BP 156/97
[2020-02-24 07:00] VITALS: BP 175/99
[2020-02-24] MEDS: oxyCODONE/APAP 5/325 1 TAB TABLET PO PRN (10:22)
[2020-02-24 10:58] VITALS: BP 145/87
--- NOTE | 2020-02-24 11:58 | NUR ---
SW following. Discussed with RN, pt from home, ada diet, room air, pt gets around fine. Cardiology following. RN advised no SW needs and anticipates possible discharge home today. SW will continue to follow.
--- NOTE | 2020-02-24 13:30 | PDOC3 ---
Discharge Summary Visit Information Date of Admission: Feb 23, 2020 Date of Discharge: Feb 24, 2020 Admitting Diagnosis: Nonischemic cardiomyopathy, chronic systolic heart failu Final Diagnosis Nonischemic cardiomyopathy Chronic systolic heart failure Left bundle branch block Hypertension Brief Hospital Course Allergies Allergies Coded Allergies Type Severity Reaction Last Updated Verified No Known Drug Allergies 06/28/19 No Vital Signs Vital Signs Date Time Temp Pulse Resp B/P (MAP) Pulse Ox O2 Delivery O2 Flow Rate FiO2 02/24/20 11:51 96 Room Air 2.0 02/24/20 10:58 97.8 80 20 145/87 (106) 97.8 Lab Results Laboratory Tests Test 02/23/20 09:40 White Blood Count 4.5 x10^3/uL (4.0-11.0) Red Blood Count 4.08 x10^6/uL (4.30-5.70) Hemoglobin 14.2 g/dL (13.0-17.5) Hematocrit 41.4 % (39.0-53.0) Mean Corpuscular Volume 102 fL (79-100) Mean Corpuscular Hemoglobin 35 pg (25-35) Mean Corpuscular Hemoglobin Concent 34 g/dL (31-37) Red Cell Distribution Width 14.3 % (11.5-14.5) Platelet Count 316 x10^3/uL (140-400) Prothrombin Time 13.7 SEC (11.7-14.0) Prothromb Time International Ratio 1.1 (0.8-1.1) Sodium Level 139 mmol/L (136-145) Potassium Level 4.0 mmol/L (3.5-5.1) Chloride Level 104 mmol/L (98-107) Carbon Dioxide Level 26 mmol/L (21-32) Anion Gap 9 (6-14) Blood Urea Nitrogen 10 mg/dL (8-26) Creatinine 1.0 mg/dL (0.7-1.3) Estimated GFR (Cockcroft-Gault) 90.5 Glucose Level 101 mg/dL (70-99) Calcium Level 8.7 mg/dL (8.5-10.1) Brief Hospital Course Mr. Patton is a 64 old male with history of nonischemic cardiomyopathy, chronic systolic heart failure with EF 30% despite optimal medical management and cardiac dyssynchrony as evidenced by left bundle branch block underwent s uccessful biventricular ICD/PROSPECTING DRILLER HELPER-D implantation for primary prevention of sudden cardiac and cardiac resynchronization therapy. Defibrillation thresholds were measured as well. He remained hemodynamically stable during his hospital stay. Chest x-ray did not show any pneumothorax and device interrogation showed normal function. We will follow-up with our office for wound check in 2 weeks. Discharge Information Condition at Discharge: Stable Follow Up: Weeks (2) Disposition/Orders: D/C to Home Scheduled Citalopram Hydrobromide (Citalopram Hbr) 40 Mg Tablet, 40 MG PO DAILY for anxiety for 30 Days, #30 Prescribed by: ALEXY OWENS MD on 06/30/191634 Last Action: Reviewed on 02/23/20938 by Aimee Mcallister Ferrous Gluconate (Iron) 236 Mg Tablet, 1 TAB PO DAILY for suppliment for 30 Days, #30 Ref 0 (Reported) Entered as Reported by: Aimee Mcallister on 02/23/20938 Last Action: New Order on 02/23/20938 by Aimee Mcallister Lisinopril (Lisinopril) 20 Mg Tablet, 1 TAB PO DAILY for HTN, #30 Ref 5 (Reported) Entered as Reported by: Aimee Mcallister on 02/23/20938 Last Taken: Unknown Dose on 02/23/20 Last Action: New Order on 02/23/20938 by Aimee Mcallister Loratadine (Loratadine) 10 Mg Tab.rapdis, 1 TAB PO DAILY for allergy symptoms for 30 Days, #30 Ref 0 (Reported) Entered as Reported by: Aimee Mcallister on 02/23/20938 Last Action: New Order on 02/23/20938 by Aimee Mcallister Mecobalamin (B12 Active) 1,000 Mcg Tab.chew, 1,000 MCG PO DAILY for suppliment, (Reported) Entered as Reported by: Aimee Mcallister on 02/23/20939 Last Action: New Order on 02/23/20939 by Aimee Mcallister Metoprolol Succinate (Metoprolol Succinate ( Xl )) 25 Mg Tab.er.24h, 1 TAB PO DAILY for CHF, #30 Ref 5 Prescribed by: ALEXY OWENS MD on 06/30/191634 Last Action: Reviewed on 02/23/20938 by Aimee Mcallister Sacubitril/Valsartan (Entresto 49 mg-51 mg Tablet) 1 Each Tablet, 1 EACH PO BID for Cadiomyopathy, (Reported) Entered as Reported by: Aimee Mcallister on 02/23/20938 Last Action: New Order on 02/23/20938 by Aimee Mcallister Scheduled PRN Albuterol Sulfate (Proair Hfa) 8.5 Gm Hfa.aer.ad, 2.5 MG NEB PRN Q2HR PRN for DYSPNEA for 30 Days, #1 Prescribed by: ALEXY OWENS MD on 06/30/19 1635 Diclofenac Sodium (Diclofenac Sodium) 75 Mg Tablet.dr, 1 TAB PO BID PRN for PAIN, #60 Ref 1 (Reported) Entered as Reported by: Aimee Mcallister on 02/23/20938 Last Action: New Order on 02/23/20938 by Aimee Mcallister Justicifation of Admission Dx: Justifications for Admission: Justification of Admission Dx: Yes Comments: Post procedure LIANA FERREIRA MD Feb 24, 2020 13:30
--- NOTE | 2020-02-24 13:33 | DISCH ---
DISCHARGE INSTRUCTIONS Condition on Discharge Condition on Discharge: Stable Activity After Discharge Activity Instructions for Disc: Activity as tolerated Lifting Instructions after Dis: Do not lift >10 pounds Driving Instructions after Dis: Do not drive today Diet after Discharge Diet after Discharge: Cardiac Diet Texture: Regular Liquid Texture: Thin Liquid Wound Incision Care Wound/Incision Care: No wound care needed Checks after Discharge Checks after discharge: Check blood press - daily, Check your Temp as needed Treatment/Equipment after DC Adaptive Equipment Issued: None LIANA FERREIRA MD Feb 24, 2020 13:33
[2020-02-24 14:47] VITALS: BP 163/79
--- NOTE | 2020-02-24 14:56 | RAD ---
PA and lateral chest x-ray compared to portable chest radiograph dated February 17, 2020 for one day status post pacemaker implantation. FINDINGS: 3-lead AICD is unchanged. Heart size mildly enlarged but otherwise unchanged as well. No apical pneumothorax or large pleural effusion, however the left costophrenic sulcus is not included on the film. No areas of pneumonic consolidation. No significant osseous abnormalities. IMPRESSION: 1. No definite acute cardiopulmonary abnormality. Specifically no apical pneumothorax, though the left costophrenic sulcus is not completely included on the film. Recommend inclusion of the lung bases on the next follow-up radiograph. Electronically signed by: Wilfrid Wall MD (02/24/2020 2:53 PM) [id number]
--- NOTE | 2020-02-24 16:22 | NUR ---
Discharge Note: LAYO BUTLER [address] [place] [address] Discharge instructions and discharge home medications reviewed with Patient and a copy given. All questions have been answered and understanding verbalized. The following instructions and handouts were given: Diet, activity, medication list and follow up instructions provided to patient. Post pacemaker placement instructions given to patient. Discontinued lines and drains: Peripheral IVs discontinued and catheters intact. Patient discharged to Home or Self Care with Self via Wheelchair.
== END 2020-02-24 16:13 | disposition hospice, home (50) ==
LOC: SURG 09:20 → 2 SOUTH 09:52
PROVIDERS: ADMIT Internal Medicine Cardiovascular Disease; ATTEND Internal Medicine Cardiovascular Disease
DX: I44.7 Left bundle-branch block, unspecified (principal); I42.8 Other cardiomyopathies; I11.0 Hypertensive heart disease with heart failure; I50.22 Chronic systolic (congestive) heart failure; I49.01 Ventricular fibrillation
CPT/HCPCS: 33225; 33249; 36415; 71045; 71046; 80048; 85027; 85610; 93005; 93641; 96374; 96376; C1769; C1882; C1895; C1898; C1900; G0378; G0379; J0690; J2250; J2704; J3010; J3490; J7050; J7120; Q9967; J7030

== ENCOUNTER → 2020-11-05 | Outpatient (CLI) | payer OTHER ==
[~2020-11-05] MED LIST changes: +DICL75TA PO; +FERR236T2 PO; -HYDROmorphone 2 MG/ML VIAL IV PRN; -IV RINGERS,LACTATED 1000ML 1,000 ML IV SCH; -LIDOCAINE 1% PF 2 ML VIAL. ID PRN; -LISI-338 PO; +LISI-517 PO; +LISI20TA18 PO; +LORA-169 PO; +MECO10005 PO; -MORPHINE SULFATE 2 MG/ML VIAL. IV PRN; -PROCHLORPERAZINE 10 MG/2 ML VIAL. IV PRN; +SACU1TAB7 PO; -fentaNYL PF VIAL 100 MCG/2 ML VIAL IV PRN
--- NOTE | 2020-11-05 14:17 | CARD ---
MR#: [id number] Date of Study: 11/05/2020 Ordering Physician: LEANDRA CANTU, Referring Physician: LEANDRA CANTU, Tech: Oly Moreira [facility] APPROVED REPORT EXAM: Two-dimensional and M-mode echocardiogram with Doppler and color Doppler. Other Information Quality : AverageHR: 72bpm Rhythm : NSR INDICATION Cardiomyopathy RISK FACTORS Hypertension Hyperlipidemia 2D DIMENSIONS RVDd2.5 (2.9-3.5cm)Left Atrium(2D)3.1 (1.6-4.0cm) IVSd1.5 (0.7-1.1cm)Aortic Root(2D)3.1 (2.0-3.7cm) LVDd3.7 (3.9-5.9cm)LVOT Diameter2.1 (1.8-2.4cm) PWd1.6 (0.7-1.1cm)LVDs2.9 (2.5-4.0cm) FS (%) 21.1 %SV24.7 ml LVEF(%)43.6 (>50%) Aortic Valve AoV Peak Mendoza.147.8cm/sAoV VTI23.8cm AO Peak GR.8.7mmHgLVOT Peak Mednoza.113.7cm/s AO Mean GR.4mmHgAVA (VMAX)2.76cm2 Mitral Valve MV E Ckfwtiyb80.3cm/sMV DECEL [id number] MV A Mnuhwvzv14.6cm/sE/A Ratio0.8 Pulmonary Valve PV Peak Akqqglak779.5cm/s Tricuspid Valve TR P. Qpcxjpbf555mh/sTR Peak Gr.29mmHg LEFT VENTRICLE The left ventricle is normal size. There is moderate concentric left ventricular hypertrophy. The lef t ventricular systolic function is mild reduced. The ejection fraction is 40-45%. There is global hyp okinesis of the left ventricle. Transmitral Doppler flow pattern is Grade I-abnormal relaxation patte rn. RIGHT VENTRICLE The right ventricle is normal size. There is normal right ventricular wall thickness. The right ventr icular systolic function is normal. ATRIA The left atrium is mildly dilated. The right atrium size is normal. The interatrial septum is intact with no evidence for an atrial septal defect or patent foramen ovale as noted on 2-D or Doppler imagi ng. AORTIC VALVE The aortic valve is normal in structure and function. Doppler and Color Flow revealed no significant aortic regurgitation. There is no significant aortic valvular stenosis. MITRAL VALVE The mitral valve is normal in structure and function. There is no evidence of mitral valve prolapse. There is no mitral valve stenosis. Doppler and Color-flow revealed mild mitral regurgitation. TRICUSPID VALVE The tricuspid valve is normal in structure and function. Doppler and Color Flow revealed mild tricusp id regurgitation. Estimated PAP 32 mmHg. There is no tricuspid valve stenosis. PULMONIC VALVE The pulmonary valve is normal in structure and function. Doppler and Color Flow revealed no pulmonic valvular regurgitation. GREAT VESSELS The aortic root is normal in size. The ascending aorta is normal in size. The IVC is normal in size a nd collapses >50% with inspiration. PERICARDIAL EFFUSION There is no evidence of significant pericardial effusion. Critical Notification Critical Value: No <Conclusion> The left ventricular systolic function is mild reduced. The ejection fraction is 40-45%. Transmitral Doppler flow pattern is Grade I-abnormal relaxation pattern. Mild mitral regurgitation. Mild tricuspid regurgitation. Estimated PAP 32 mmHg. There is no evidence of significant pericardial effusion. Signed by : Star Villafana, Electronically Approved : 11/05/2020 14:16:45
== END ==
LOC: ECHO 09:36
PROVIDERS: ATTEND Internal Medicine Cardiovascular Disease
DX: I08.1 Rheumatic disorders of both mitral and tricuspid valves (principal); I42.8 Other cardiomyopathies
CPT/HCPCS: 93306